=== PATIENT | female | born 1950 | race Caucasian/White ===

== ENCOUNTER 2021-06-02 05:41 | Inpatient (IN) | payer MEDICARE, OTHER ==
[2021-06-02] MEDS ORDERED: fentaNYL 100 MCG/2 ML SDV IVPUSH ONE ×3 (06:14→10:36)
[2021-06-02] MEDS ORDERED: Ondansetron 4 MG/2 ML SDV IVPUSH ONE ×2 (06:14→08:22)
[2021-06-02] MEDS ORDERED: Lactated Ringers 1,000 ML IV SCH (06:15)
--- NOTE | 2021-06-02 06:17 | EDM.PDOC ---
<OfficerMata - Last Filed: 06/02/21 06:14> ED HPI GENERAL MEDICAL PROBLEM - General Chief Complaint: Abdominal Pain Stated Complaint: ABD PAIN Time Seen by Provider: 06/02/21 06:09 Source of Information: Reports: Patient, RN Notes Reviewed History Limitations: Reports: No Limitations - History of Present Illness INITIAL COMMENTS - FREE TEXT/NARRATIVE: 71-year-old female presents emergency department day complaint of abdominal pain, she states the pain awoke her this morning she feels her abdomen is significantly flatus. Left Lower Abdomen Pain Score (Numeric/FACES): 6 - Related Data Allergies Allergy/AdvReac Type Severity Reaction Status Date / Time nitrofurantoin Allergy Hives Verified 06/02/21 05:49 [From Macrobid] nitrofurantoin Allergy Hives Verified 06/02/21 05:49 macrocrystalline [From Macrobid] oxycodone Allergy Hives Verified 06/02/21 05:49 Home Meds: Home Meds DULoxetine [Cymbalta] 20 mg PO DAILY 06/02/21 [History] Lisinopril/Hydrochlorothiazide [Lisinopril-Hctz 20-25 mg Tab] 1 tab PO DAILY 06/02/21 [History] PARoxetine HCl [Paxil] 40 mg PO DAILY 06/02/21 [History] S-Adenosylmethionine Sul Tosyl [Fuentes-E] 1,600 mg PO DAILY 06/02/21 [History] Past Medical History Cardiovascular History: Reports: Hypertension [employer] History: Reports: Fibroids, Musculoskeletal History: Reports: Arthritis, Back Pain, Chronic, Neck Pain, Chronic Psychiatric History: Reports: Anxiety, Depression Endocrine/Metabolic History: Reports: Multinodular Thyroid Hematologic History: Reports: Blood Transfusion(s) Oncologic (Cancer) History: Reports: Basal Cell Carcinoma - Infectious Disease History Infectious Disease History: Reports: Chicken Pox, Measles, Mumps - Past Surgical History Female Surgical History: Reports: Hysterectomy Neurological Surgical History: Reports: C-Spine, Lumbar Spine, Spinal Fusion Musculoskeletal Surgical History: Reports: Joint Replacement, Shoulder Repla cement Social & Family History - Tobacco Use Tobacco Use Status *Q: Never Tobacco User - Caffeine Use Caffeine Use: Reports: Coffee Caffeine Use Comment: 1 cup per day - Alcohol Use Days Per Week of Alcohol Use: 7 Number of Drinks Per Day: 2 Total Drinks Per Week: 14 - Recreational Drug Use Recreational Drug Use: No ED ROS GENERAL - Review of Systems Review Of Systems: See Below Constitutional: Reports: No Symptoms HEENT: Reports: No Symptoms Respiratory: Reports: No Symptoms Cardiovascular: Reports: No Symptoms GI/Abdominal: Reports: Abdominal Pain, Flatus, Nausea. Denies: Vomiting : Reports: No Symptoms ED EXAM, GI/ABD - Physical Exam Exam: See Below Exam Limited By: No Limitations General Appearance: Alert, WD/WN, No Apparent Distress Respiratory/Chest: No Respiratory Distress, Lungs Clear, Normal Breath Sounds, No Accessory Muscle Use, Chest Non-Tender Cardiovascular: Regular Rate, Rhythm, No Murmur GI/Abdominal Exam: Soft, Distended, Tender (Left lower quadrant) Departure - Departure Disposition: Admitted As Inpatient 64 Clinical Impression: SBO (small bowel obstruction), Hypokalemia, Elevated blood sugar - Discharge Information Referrals: PCP,None [Primary Care Provider] - Forms: ED Department Discharge Sepsis Event Note (ED) - Evaluation Sepsis Screening Result: No Definite Risk <Jong Briones - Last Filed: 06/02/21 09:51> Course - Vital Signs Text/Narrative:: Dr. Greg Santillan paged @ 0890 Dr. Mahmood called @ 0958 Last Recorded V/S: Last Vital Signs Temp 36.1 C 06/02/21 05:58 Pulse 70 06/02/21 07:33 Resp 16 06/02/21 07:33 BP 174/86 H 06/02/21 09:11 Pulse Ox 97 06/02/21 07:33 - Orders/Labs/Meds Orders: Active Orders 24 hr Category Date Time Status Peripheral IV Care [RC] . DIRECTED Care 06/02/21 06:13 Active Iopamidol [Isovue-300 (61%)] Med 06/02/21 06:45 Active 100 ml IV . DIRECTED Lactated Ringers [Ringers, Lactated] 1,000 ml Med 06/02/21 06:15 Active IV ASDIRECTED NS + KCl 20mEq/L [Normal Saline with 20 mEq KCl] 1,000 Med 06/02/21 09:45 Active ml IV ASDIRECTED Sodium Chloride 0.9% [Normal Saline] 100 ml Med 06/02/21 06:45 Active IV ASDIRECTED Sodium Chloride 0.9% [Saline Flush] Med 06/02/21 06:12 Active 10 ml FLUSH ASDIRECTED PRN Nasogastric Orogastric Tube Insertion [OM.PC] Routine Oth 06/02/21 08:47 Ordered Peripheral IV Insertion Adult [OM.PC] Urgent Ot 06/02/21 06:12 Ordered Medication Orders Lactated Ringer's (Ringers, Lactated) 1,000 mls @ 999 mls/hr IV ASDIRECTED BRYANT Last Admin: 06/02/21 06:28 Dose: 999 mls/hr Documented by: MARIE Sodium Chloride (Normal Saline) 100 mls @ 3 mls/sec IV ASDIRECTED BRYANT Last Admin: 06/02/21 07:14 Dose: 3 mls/sec Documented by: KALIA Potassium Chloride/Sodium Chloride (Normal Saline With 20 Meq Kcl) 1,000 mls @ 125 mls/hr IV ASDIRECTED BRYANT Last Admin: 06/02/21 09:41 Dose: 125 mls/hr Documented by: IZABEL Iopamidol (Iopamidol 612 Mg/Ml 100 Ml Bottle) 100 ml IV . DIRECTED BRYANT Last Admin: 06/02/21 07:14 Dose: 100 ml Documented by: KALIA Sodium Chloride (Sodium Chloride 0.9% 10 Ml Syringe) 10 ml FLUSH ASDIRECTED PRN PRN Reason: Keep Vein Open Last Admin: 06/02/21 07:14 Dose: 10 ml Documented by: Admin: 06/02/21 06:27 Dose: 10 ml Documented by: MARIE Labs: Laboratory Tests 06/02/21 06/02/21 06/02/21 Range/Units 06:29 06:29 06:29 WBC 11.6 H (4.5-11.0) K/uL RBC 4.66 (3.30-5.50) M/uL Hgb 14.5 (12.0-15.0) g/dL Hct 41.8 (36.0-48.0) % MCV 90 (80-98) fL MCH 31 (27-31) pg MCHC 35 (32-36) % Plt Count 322 (150-400) K/uL Neut % (Auto) 84.6 H (36-66) % Lymph % (Auto) 8.8 L (24-44) % Victoria % (Auto) 5.8 (2-6) % Eos % (Auto) 0.6 L (2-4) % Baso % (Auto) 0.2 (0-1) % Sodium 136 L (140-148) mmol/L Potassium 3.1 L (3.6-5.2) mmol/L Chloride 96 L (100-108) mmol/L Carbon Dioxide 27 (21-32) mmol/L Anion Gap 16.1 H (5.0-14.0) mmol/L BUN 17 (7-18) mg/dL Creatinine 0.8 (0.6-1.0) mg/dL Est Cr Clr Drug Dosing 49.53 mL/min Estimated GFR (MDRD) > 60 (>60) Glucose 174 H (74-106) mg/dL Lactic Acid 1.4 (0.4-2.0) mmol/L Calcium 9.0 (8.5-10.1) mg/dL Magnesium (1.8-2.4) mg/dL Total Bilirubin 0.6 (0.2-1.0) mg/dL AST 23 (15-37) U/L ALT 30 (12-78) U/L Alkaline Phosphatase 65 (46-116) U/L Troponin I < 0.017 (0.000-0.056) ng/mL Total Protein 6.9 (6.4-8.2) g/dL Albumin 3.7 (3.4-5.0) g/dL Globulin 3.2 (2.3-3.5) g/dL Albumin/Globulin Ratio 1.2 (1.2-2.2) Lipase 77 (73-393) U/L Urine Color (YELLOW) Urine Appearance (CLEAR) Urine pH (5.0-8.0) Ur Specific [place]wood (1.008-1.030) Urine Protein (NEGATIVE) mg/dL Urine Glucose (UA) (NEGATIVE) mg/dL Urine Ketones (NEGATIVE) mg/dL Urine Occult Blood (NEGATIVE) Urine Nitrite (NEGATIVE) Urine Bilirubin (NEGATIVE) Urine Urobilinogen (0.2-1.0) EU/dL Ur Leukocyte Esterase (NEGATIVE) Urine RBC (0-5) Urine WBC (0-5) Ur Epithelial Cells Amorphous Sediment Urine Bacteria Urine Mucus 06/02/21 06/02/21 Range/Units 07:11 07:31 WBC (4.5-11.0) K/uL RBC (3.30-5.50) M/uL Hgb (12.0-15.0) g/dL Hct (36.0-48.0) % MCV (80-98) fL MCH (27-31) pg MCHC (32-36) % Plt Count (150-400) K/uL Neut % (Auto) (36-66) % Lymph % (Auto) (24-44) % Victoria % (Auto) (2-6) % Eos % (Auto) (2-4) % Baso % (Auto) (0-1) % Sodium (140-148) mmol/L Potassium (3.6-5.2) mmol/L Chloride (100-108) mmol/L Carbon Dioxide (21-32) mmol/L Anion Gap (5.0-14.0) mmol/L BUN (7-18) mg/dL Creatinine (0.6-1.0) mg/dL Est Cr Clr Drug Dosing mL/min Estimated GFR (MDRD) (>60) Glucose (74-106) mg/dL Lactic Acid (0.4-2.0) mmol/L Calcium (8.5-10.1) mg/dL Magnesium 2.2 (1.8-2.4) mg/dL Total Bilirubin (0.2-1.0) mg/dL AST (15-37) U/L ALT (12-78) U/L Alkaline Phosphatase (46-116) U/L Troponin I (0.000-0.056) ng/mL Total Protein (6.4-8.2) g/dL Albumin (3.4-5.0) g/dL Globulin (2.3-3.5) g/dL Albumin/Globulin Ratio (1.2-2.2) Lipase (73-393) U/L Urine Color Yellow (YELLOW) Urine Appearance Cloudy A (CLEAR) Urine pH 8.5 H (5.0-8.0) Ur Specific [place]wood 1.015 (1.008-1.030) Urine Protein 30 H (NEGATIVE) mg/dL Urine Glucose (UA) Negative (NEGATIVE) mg/dL Urine Ketones Negative (NEGATIVE) mg/dL Urine Occult Blood Negative (NEGATIVE) Urine Nitrite Negative (NEGATIVE) Urine Bilirubin Negative (NEGATIVE) Urine Urobilinogen 0.2 (0.2-1.0) EU/dL Ur Leukocyte Esterase Negative (NEGATIVE) Urine RBC 0-5 (0-5) Urine WBC 0-5 (0-5) Ur Epithelial Cells Few Amorphous Sediment Many Urine Bacteria Not seen Urine Mucus Not seen Meds: Medications Generic Name Dose Route Start Last Admin Trade Name Freq PRN Reason Stop Dose Admin Lactated Ringer's 1,000 mls @ 999 mls/hr 06/02/21 06:15 06/02/21 06:28 Ringers, Lactated IV 999 mls/hr ASDIRECTED BRYANT Administration Sodium Chloride 100 mls @ 3 mls/sec 06/02/21 06:45 06/02/21 07:14 Normal Saline IV 3 mls/sec ASDIRECTED BRYANT Administration Potassium Chloride/Sodium Chloride 1,000 mls @ 125 mls/hr 06/02/21 09:45 06/02/21 09:41 Normal Saline With 20 Meq Kcl IV 125 mls/hr ASDIRECTED BRYANT Administration Iopamidol 100 ml 06/02/21 06:45 06/02/21 07:14 Iopamidol 612 Mg/Ml 100 Ml Bottle IV 100 ml . DIRECTED BRYANT Administration Sodium Chloride 10 ml 06/02/21 06:12 06/02/21 07:14 Sodium Chloride 0.9% 10 Ml Syringe FLUSH 10 ml ASDIRECTED PRN Administration Keep Vein Open Discontinued Medications Generic Name Dose Route Start Last Admin Trade Name Freq PRN Reason Stop Dose Admin Fentanyl 50 mcg 06/02/21 06:14 06/02/21 06:28 Fentanyl 100 Mcg/2 Ml Sdv IVPUSH 06/02/21 06:15 50 mcg ONETIME ONE Administration Fentanyl 50 mcg 06/02/21 08:22 06/02/21 08:29 Fentanyl 100 Mcg/2 Ml Sdv IVPUSH 06/02/21 08:23 50 mcg ONETIME ONE Administration Potassium Chloride 20 meq/ 100 mls @ 50 mls/hr 06/02/21 07:11 06/02/21 07:37 Premix IV 06/02/21 09:10 50 mls/hr ONETIME ONE Administration Ondansetron HCl 4 mg 06/02/21 06:14 06/02/21 06:27 Ondansetron 4 Mg/2 Ml Sdv IVPUSH 06/02/21 06:15 4 mg ONETIME ONE Administration Ondansetron HCl 4 mg 06/02/21 08:22 06/02/21 08:29 Ondansetron 4 Mg/2 Ml Sdv IVPUSH 06/02/21 08:23 4 mg ONETIME ONE Administration Sodium Chloride 10 ml 06/02/21 06:37 06/02/21 08:30 Sodium Chloride 0.9% 10 Ml Syringe FLUSH 06/02/21 06:38 10 ml ONETIME ONE Administration - Radiology Interpretation Free Text/Narrative:: CT abd/pelvis with IV contrast-SBO Chest for NG placement-NG satisfactorily placed. CT Results Date: 06/02/21 CT Results Time: 08:15 Departure - Departure Time of Disposition: 10:00 Condition: Fair - Discharge Information *PRESCRIPTION DRUG MONITORING PROGRAM REVIEWED*: Not Applicable *COPY OF PRESCRIPTION DRUG MONITORING REPORT IN PATIENT DEDRA: Not Applicable Sepsis Event Note (ED) - Focused Exam Vital Signs: Vital Signs Temp Pulse Resp BP Pulse Ox 06/02/21 09:11 174/86 H 06/02/21 07:33 70 16 127/62 97 06/02/21 05:58 36.1 C 82 16 166/90 H 94 L - My Orders Last 24 Hours: My Active Orders 06/02/21 08:47 Nasogastric Orogastric Tube Insertion [OM.PC] Routine 06/02/21 09:45 NS + KCl 20mEq/L [Normal Saline with 20 mEq KCl] 1,000 ml IV ASDIRECTED - Assessment/Plan Last 24 Hours: My Active Orders 06/02/21 08:47 Nasogastric Orogastric Tube Insertion [OM.PC] Routine 06/02/21 09:45 NS + KCl 20mEq/L [Normal Saline with 20 mEq KCl] 1,000 ml IV ASDIRECTED
[2021-06-02] MEDS: Sodium Chloride 0.9% 10 ML Syringe FLUSH PRN ×2 (06:27→07:14)
[2021-06-02] MEDS ORDERED: Sodium Chloride 0.9% 10 ML Syringe FLUSH ONE (06:37)
[2021-06-02] MEDS ORDERED: Iopamidol 612 MG/ML 100 ML Bottle IV SCH (06:45)
[2021-06-02] MEDS ORDERED: Sodium Chloride 0.9% 100 ML IV SCH (06:45)
[2021-06-02] MEDS ORDERED: Potassium Chloride 20 MEQ in Premix Bag 1 BAG IV ONE (07:11)
--- NOTE | 2021-06-02 08:08 | CRLCT ---
For Patients: As a result of the Century Cures Act, medical imaging exams and procedure reports are released immediately into your electronic medical record. You may view this report before your referring provider. If you have questions, please contact your health care provider. INDICATION: Left lower quadrant abdomen pain and distention. TECHNIQUE: CT abdomen and pelvis acquired with 100 cc Isovue-300 IV contrast. COMPARISON: None. FINDINGS: Lower chest: Unremarkable. Liver: Unremarkable. Normal in size and attenuation. No suspicious masses. Gallbladder and bile ducts: Few gallbladder stones. No biliary dilatation. Pancreas: Unremarkable. No mass or inflammation. Spleen: Unremarkable. Normal in size. No masses. Adrenal glands: Unremarkable. No nodules. Kidneys: Unremarkable. No suspicious masses, stones, or hydronephrosis. GI tract: There is a small bowel obstruction pattern with small bowel loops dilated up to 4 cm. A general area of transition is suspected in the distal jejunum or ileum. The colon is decompressed. Normal appendix. Vasculature: Unremarkable. Mesenteric arteries are patent. Lymph nodes: No lymphadenopathy. Omentum/Peritoneum/Abdominal Wall: Unremarkable. No sign of mass or infiltration. No free air or significant free fluid. Pelvis: Unremarkable. Bones: Unremarkable for age. IMPRESSION: Small-bowel obstruction with a general area of transition distally. No specific cause for this obstruction. No other acute or significant finding. Please note that all CT scans at this facility use dose modulation, iterative reconstruction, and/or weight-based dosing when appropriate to reduce radiation dose to as low as reasonably achievable. Dictated by Narciso Cordero MD @ 06/02/2021 8:06:[address] Narciso Cordero @ Jun 02 2021 8:06AM
[2021-06-02] MEDS ORDERED: NS + KCl 20mEq/L 1,000 ML IV SCH (09:45)
--- NOTE | 2021-06-02 09:46 | CR ---
Abdomen 1V Upright CLINICAL HISTORY: NG tube placement FINDINGS: There are scattered fluid-filled loops of small bowel that are seen on the recent CT. NG tube is been placed. Tip is in the distal body of the stomach. There is contrast in the collecting system and bladder from recent CT. IMPRESSION: NG tube in the distal body of stomach
--- NOTE | 2021-06-02 09:47 | CR ---
CHEST: Portable 06/02/2021 at 9:35 AM CLINICAL HISTORY:NG tube placement COMPARISON:None FINDINGS: Heart size and pulmonary vascularity are normal. Lung esparza are clear. There is no evidence of pneumothorax. There is an NG tube in the upper body of the stomach.. Impression: Lungs are clear NG tube in place
--- NOTE | 2021-06-02 10:26 | PCM.HP.2 ---
H&P History of Present Illness - General Date of Service: 06/02/21 Admit Problem/Dx: Admission Diagnosis/Problem Admission Diagnosis/Problem Abdominal pain Source of Information: Patient, Family, Provider, RN Notes Reviewed History Limitations: Reports: No Limitations - History of Present Illness Initial Comments - Free Text/Narative: Ms. Moses is a 71-year-old woman who was admitted through the emergency department with abdominal pain, nausea, and vomiting, secondary to a small bowel obstruction. She has no prior history of bowel obstruction. She has had a previous abdominal hysterectomy as well as abdominal approach with a previous back surgery. She was feeling well until last night when she developed abrupt onset of pain associated with nausea and vomiting. Symptoms persisted and she presented to the emergency department early this morning. CT scan of the abdomen and pelvis obtained in the emergency department documented a distal small bowel obstruction. Left Lower Abdomen Pain Score (Numeric/FACES): 3 - Related Data Allergies/Adverse Reactions: Allergies Allergy/AdvReac Type Severity Reaction Status Date / Time nitrofurantoin Allergy Hives Verified 06/02/21 05:49 [From Macrobid] nitrofurantoin Allergy Hives Verified 06/02/21 05:49 macrocrystalline [From Macrobid] oxycodone Allergy Hives Verified 06/02/21 05:49 Home Medications: Home Meds DULoxetine [Cymbalta] 20 mg PO DAILY 06/02/21 [History] Lisinopril/Hydrochlorothiazide [Lisinopril-Hctz 20-25 mg Tab] 1 tab PO DAILY 06/02/21 [History] PARoxetine HCl [Paxil] 40 mg PO DAILY 06/02/21 [History] S-Adenosylmethionine Sul Tosyl [Fuentes-E] 1,600 mg PO DAILY 06/02/21 [History] Past Medical History Cardiovascular History: Reports: Hypertension GRIP BOSS History: Reports: Fibroids, Musculoskeletal History: Reports: Arthritis, Back Pain, Chronic, Neck Pain, Chronic Psychiatric History: Reports: Anxiety, Depression Endocrine/Metabolic History: Reports: Multinodular Thyroid Hematologic History: Reports: Blood Transfusion(s) Oncologic (Cancer) History: Reports: Basal Cell Carcinoma - Infectious Disease History Infectious Disease History: Reports: Chicken Pox, Measles, Mumps - Past Surgical History Female Surgical History: Reports: Hysterectomy Neurological Surgical History: Reports: C-Spine, Lumbar Spine, Spinal Fusion Musculoskeletal Surgical History: Reports: Joint Replacement, Shoulder Replacement Social & Family History - Tobacco Use Tobacco Use Status *Q: Never Tobacco User - Caffeine Use Caffeine Use: Reports: Coffee Caffeine Use Comment: 1 cup per day - Alcohol Use Days Per Week of Alcohol Use: 7 Number of Drinks Per Day: 2 Total Drinks Per Week: 14 - Recreational Drug Use Recreational Drug Use: No H&P Review of Systems - Review of Systems: Review Of Systems: See Below General: Reports: Malaise, Weakness, Fatigue. Denies: Fever, Chills HEENT: Reports: No Symptoms Pulmonary: Reports: No Symptoms Gastrointestinal: Reports: Abdominal Pain, Distension, Nausea, Vomiting. Denies: Diarrhea, Difficulty Swallowing, Hematemesis, Hematochezia, Melena Genitourinary: Reports: No Symptoms Musculoskeletal: Reports: No Symptoms Skin: Reports: No Symptoms Psychiatric: Reports: No Symptoms Neurological: Reports: No Symptoms Hematologic/Lymphatic: Reports: No Symptoms Immunologic: Reports: No Symptoms Exam - Exam Exam: See Below - Vital Signs Vital Signs: Last Vital Signs Temp 97.0 F 06/02/21 05:58 Pulse 70 06/02/21 07:33 Resp 16 06/02/21 07:33 BP 174/86 H 06/02/21 09:11 Pulse Ox 97 06/02/21 07:33 Weight: 147 lb 11.355 oz - Exam General: Alert, Oriented, Cooperative, Moderate Distress HEENT: Conjunctiva Clear, Hearing Intact, Normal Nasal Septum, Posterior Pharynx Clear, Pupils Equal. No: Mucosa Moist & [place]ck: Supple, Trachea Midline, +2 Carotid Pulse wo Bruit Lungs: Clear to Auscultation, Normal Respiratory Effort Cardiovascular: Regular Rate, Regular Rhythm, Normal S1, Normal S2. No: Systolic Murmur, Diastolic Murmur GI/Abdominal Exam: Soft, No Organomegaly, Distended, Guarding, Tender. No: Rigid, Rebound Back Exam: Normal Inspection, Full Range of Motion Extremities: Non-Tender, No Pedal Edema Skin: Warm, Dry, Intact Neurological: Cranial Nerves Intact, Strength Equal Bilateral, Normal Speech, Normal Tone, Sensation Intact. No: Focal Deficit Neuro Extensive - Mental Status: Alert, Oriented x3, Normal Mood/Affect, Normal Cognition, Memory Intact - Patient Data Lab Results Last 24 hrs: Laboratory Results - last 24 hr 06/02/21 06/02/21 06/02/21 Range/Units 06:29 06:29 06:29 WBC 11.6 H (4.5-11.0) K/uL RBC 4.66 (3.30-5.50) M/uL Hgb 14.5 (12.0-15.0) g/dL Hct 41.8 (36.0-48.0) % MCV 90 (80-98) fL MCH 31 (27-31) pg MCHC 35 (32-36) % Plt Count 322 (150-400) K/uL Neut % (Auto) 84.6 H (36-66) % Lymph % (Auto) 8.8 L (24-44) % [place] % (Auto) 5.8 (2-6) % Eos % (Auto) 0.6 L (2-4) % Baso % (Auto) 0.2 (0-1) % Sodium 136 L (140-148) mmol/L Potassium 3.1 L (3.6-5.2) mmol/L Chloride 96 L (100-108) mmol/L Carbon Dioxide 27 (21-32) mmol/L Anion Gap 16.1 H (5.0-14.0) mmol/L BUN 17 (7-18) mg/dL Creatinine 0.8 (0.6-1.0) mg/dL Est Cr Clr Drug Dosing 49.53 mL/min Estimated GFR (MDRD) > 60 (>60) Glucose 174 H (74-106) mg/dL Lactic Acid 1.4 (0.4-2.0) mmol/L Calcium 9.0 (8.5-10.1) mg/dL Magnesium (1.8-2.4) mg/dL Total Bilirubin 0.6 (0.2-1.0) mg/dL AST 23 (15-37) U/L ALT 30 (12-78) U/L Alkaline Phosphatase 65 (46-116) U/L Troponin I < 0.017 (0.000-0.056) ng/mL Total Protein 6.9 (6.4-8.2) g/dL Albumin 3.7 (3.4-5.0) g/dL Globulin 3.2 (2.3-3.5) g/dL Albumin/Globulin Ratio 1.2 (1.2-2.2) Lipase 77 (73-393) U/L Urine Color (YELLOW) Urine Appearance (CLEAR) Urine pH (5.0-8.0) Ur Specific [place] (1.008-1.030) Urine Protein (NEGATIVE) mg/dL Urine Glucose (UA) (NEGATIVE) mg/dL Urine Ketones (NEGATIVE) mg/dL Urine Occult Blood (NEGATIVE) Urine Nitrite (NEGATIVE) Urine Bilirubin (NEGATIVE) Urine Urobilinogen (0.2-1.0) EU/dL Ur Leukocyte Esterase (NEGATIVE) Urine RBC (0-5) Urine WBC (0-5) Ur Epithelial Cells Amorphous Sediment Urine Bacteria Urine Mucus 06/02/21 06/02/21 Range/Units 07:11 07:31 WBC (4.5-11.0) K/uL RBC (3.30-5.50) M/uL Hgb (12.0-15.0) g/dL Hct (36.0-48.0) % MCV (80-98) fL MCH (27-31) pg MCHC (32-36) % Plt Count (150-400) K/uL Neut % (Auto) (36-66) % Lymph % (Auto) (24-44) % [place] % (Auto) (2-6) % Eos % (Auto) (2-4) % Baso % (Auto) (0-1) % Sodium (140-148) mmol/L Potassium (3.6-5.2) mmol/L Chloride (100-108) mmol/L Carbon Dioxide (21-32) mmol/L Anion Gap (5.0-14.0) mmol/L BUN (7-18) mg/dL Creatinine (0.6-1.0) mg/dL Est Cr Clr Drug Dosing mL/min Estimated GFR (MDRD) (>60) Glucose (74-106) mg/dL Lactic Acid (0.4-2.0) mmol/L Calcium (8.5-10.1) mg/dL Magnesium 2.2 (1.8-2.4) mg/dL Total Bilirubin (0.2-1.0) mg/dL AST (15-37) U/L ALT (12-78) U/L Alkaline Phosphatase (46-116) U/L Troponin I (0.000-0.056) ng/mL Total Protein (6.4-8.2) g/dL Albumin (3.4-5.0) g/dL Globulin (2.3-3.5) g/dL Albumin/Globulin Ratio (1.2-2.2) Lipase (73-393) U/L Urine Color Yellow (YELLOW) Urine Appearance Cloudy A (CLEAR) Urine pH 8.5 H (5.0-8.0) Ur Specific [place] 1.015 (1.008-1.030) Urine Protein 30 H (NEGATIVE) mg/dL Urine Glucose (UA) Negative (NEGATIVE) mg/dL Urine Ketones Negative (NEGATIVE) mg/dL Urine Occult Blood Negative (NEGATIVE) Urine Nitrite Negative (NEGATIVE) Urine Bilirubin Negative (NEGATIVE) Urine Urobilinogen 0.2 (0.2-1.0) EU/dL Ur Leukocyte Esterase Negative (NEGATIVE) Urine RBC 0-5 (0-5) Urine WBC 0-5 (0-5) Ur Epithelial Cells Few Amorphous Sediment Many Urine Bacteria Not seen Urine Mucus Not seen Result Diagrams: 06/02/21 06:29 06/02/21 06:29 Sepsis Event Note - Evaluation Sepsis Screening Result: No Definite Risk - Focused Exam Vital Signs: Vital Signs Temp Pulse Resp BP Pulse Ox 06/02/21 09:11 174/86 H 06/02/21 07:33 70 16 127/62 97 06/02/21 05:58 97.0 F 82 16 166/90 H 94 L *Q Meaningful Use (ADM) - VTE Risk Assess *Q Each Risk Factor Represents 1 Point: Obesity ( BMI > 25 kg/m2) Total Score 1 Point Risk Factors: 1 Each Risk Factor Represents 2 Points: Age 60 - 74 Years Total Score 2 Point Risk Factors: 2 Each Risk Factor Represents 3 Points: None Total Score 3 Point Risk Factors: 0 Each Risk Factor Represents 5 Points: None Total Score 5 Point Risk Factors: 0 Venous Thromboembolism Risk Factor Score *Q: 3 Problem List Initiated/Reviewed/Updated: Yes Orders Last 24hrs: Active Orders 24 hr Category Date Time Status Patient Status Manage Transfer [TRANSFER] Routine ADT 06/02/21 10:17 Ordered Peripheral IV Care [RC] . DIRECTED Care 06/02/21 06:13 Active Lactated Ringers [Ringers, Lactated] 1,000 ml Med 06/02/21 06:15 Active IV ASDIRECTED NS + KCl 20mEq/L [Normal Saline with 20 mEq KCl] 1,000 Med 06/02/21 09:45 Active ml IV ASDIRECTED Potassium Chloride 20 meq Med 06/02/21 11:00 Active Lidocaine 1% [Xylocaine 1%] 2 ml Sodium Chloride 0.9% [Normal Saline] 100 ml IV Q2H Sodium Chloride 0.9% [Saline Flush] Med 06/02/21 06:12 Active 10 ml FLUSH ASDIRECTED PRN Nasogastric Orogastric Tube Insertion [OM.PC] Routine Oth 06/02/21 08:47 Ordered Peripheral IV Insertion Adult [OM.PC] Urgent Oth 06/02/21 06:12 Ordered Resuscitation Status Routine Resus Stat 06/02/21 10:19 Ordered Medication Orders Lactated Ringer's (Ringers, Lactated) 1,000 mls @ 999 mls/hr IV ASDIRECTED BRYANT Last Admin: 06/02/21 06:28 Dose: 999 mls/hr Documented by: MARIE Potassium Chloride/Sodium Chloride (Normal Saline With 20 Meq Kcl) 1,000 mls @ 125 mls/hr IV ASDIRECTED BRYANT Last Admin: 06/02/21 09:41 Dose: 125 mls/hr Documented by: IZABEL Potassium Chloride 20 meq/Lidocaine HCl 2 ml/ Sodium Chloride 112 mls @ 56 mls/hr IV Q2H [facility] Stop: 06/02/21 14:59 Sodium Chloride (Sodium Chloride 0.9% 10 Ml Syringe) 10 ml FLUSH ASDIRECTED PRN PRN Reason: Keep Vein Open Last Admin: 06/02/21 07:14 Dose: 10 ml Documented by: Admin: 06/02/21 06:27 Dose: 10 ml Documented by: MARIE Assessment/Plan Comment:: ASSESSMENT AND PLAN SMALL BOWEL OBSTRUCTION-no prior history of obstruction but she does have history of previous abdominal surgeries. CT scan obtained in the emergency department documents a distal small bowel obstruction. -N.p.o. -IV fluids for hydration -Pain and nausea medication as needed -NG tube to low intermittent suction -Follow-up abdominal flatplate and upright x-ray in a.m. -Consult Dr. Santillan in a.m. for surgical follow-up HYPOKALEMIA -IV potassium replacement -Follow-up potassium level in a.m. MAINTENANCE ISSUES -DVT prophylaxis; SCUDs, hold on anticoagulation because of possible need for surgery -GI prophylaxis; Protonix 40 mg IV daily -Cortes catheter; not indicated -Nutrition; n.p.o. -Nicotine dependence; not required CODE STATUS-FULL CODE ADMISSION STATUS-patient will be admitted to inpatient status, expect at least a 2 night hospital stay for evaluation and management of problems as outlined above. At the time of this admission I do not reasonably expected evaluation and management of this problem will require more than a 96 hour hospital stay. DISPOSITION-anticipate discharge to home after the hospital stay. PRIMARY CARE PROVIDER-Dr. Madrigal - Mortality Measure Prognosis:: Good
[2021-06-02] MEDS: Potassium Chloride 20 MEQ, Lidocaine 1% 2 ML in Sodium Chloride 0.9% 100 ML IV SCH ×2 (11:02→13:01)
[2021-06-02] MEDS ORDERED: Ondansetron 4 MG/2 ML SDV IV PRN (11:10)
[2021-06-02] MEDS: Lisinopril 20 MG Tab PO SCH (12:00)
[2021-06-02] MEDS: PARoxetine 20 MG Tab PO SCH (12:00)
[2021-06-02] MEDS: Hydrochlorothiazide 25 MG Tab PO SCH (12:00)
[2021-06-02] MEDS: Pantoprazole 40 MG Vial IVPUSH SCH (12:01)
[2021-06-02] MEDS: HYDROmorphone 0.5 MG/0.5 ML Syringe IVPUSH PRN ×4 (13:01→20:29)
[2021-06-02] MEDS: Sodium Chloride 0.9% 1,000 ML IV SCH (18:06)
[2021-06-03] MEDS: Sodium Chloride 0.9% 1,000 ML IV SCH (01:42)
[2021-06-03] MEDS: HYDROmorphone 0.5 MG/0.5 ML Syringe IVPUSH PRN ×3 (04:17→13:38)
[2021-06-03] MEDS: Hydrochlorothiazide 25 MG Tab PO SCH (08:17)
[2021-06-03] MEDS: PARoxetine 20 MG Tab PO SCH (08:17)
[2021-06-03] MEDS: DULoxetine 20 MG Cap PO SCH (08:17)
[2021-06-03] MEDS: Lisinopril 20 MG Tab PO SCH (08:18)
--- NOTE | 2021-06-03 08:26 | PN ---
DATE OF SERVICE: 06/03/2021 SUBJECTIVE: Rosalba reports her pain has improved. She has passed a small amount of flatus. NG put out 1015 mL and oral intake n.p.o. with just sips, and she has been voiding independently in the toilet. No nausea or vomiting. Abdominal pain she reports in the very lower part of her abdomen. REVIEW OF SYSTEMS: HEENT: Negative. NECK: Negative. Supple. HEART: No chest pain. No fast irregular heart beat. LUNGS: No shortness of breath or cough. ABDOMEN: As above. GENITOURINARY: No UTI signs and symptoms. She states she did have a bladder infection 1 to 2 months ago. EXTREMITIES: Negative for any joint pain or swelling. NEUROLOGIC: No headaches, dizziness, or loss of coordination. She denies any numbness or tingling in the extremities. PSYCHIATRIC: She has a history of depression but states controlled with medication. SKIN: Negative for any rashes or changes in moles. The remainder of the review of systems is negative for any pertinent positives and negatives. OBJECTIVE: GENERAL: Rosalba Moses is a pleasant 71-year-old female. She has an NG in. VITAL SIGNS: TPR 97, 77, and 16 and blood pressure 131/63. HEENT: Negative. NECK: Supple. HEART: Regular rate and rhythm. LUNGS: Clear. ABDOMEN: Slightly distended. Minimal tenderness is noted in the right and left lower abdominal quadrants. EXTREMITIES: Without peripheral edema. NEUROLOGIC: Intact. PSYCHIATRIC: Mood and affect are appropriate. ASSESSMENT: 1. Partial small-bowel obstruction. 2. Hypokalemia, resolved. PLAN: 1. May have sips of clear liquid. 2. Dulcolax suppositories per rectum b.i.d. 3. Discontinue normal saline and change to D5 LR 100 mL/h. 4. Check abdominal flat and upright x-ray in the a.m. Check CBC, CMP, mag, and phos in the a.m. Isabela Adkins PA-C /[id number]
--- NOTE | 2021-06-03 09:27 | CR ---
Abdomen 2V AP Flat Upright CLINICAL HISTORY: Follow-up small bowel obstruction FINDINGS: There are scattered air-filled loops of small bowel and scattered air-fluid levels in the mid abdomen. There are some dilated small bowel in the left upper abdomen. These were mostly fluid-filled small bowel loops on prior study and CT There is some gas and feces in the right colon. NG tube is in place. IMPRESSION: Scattered air-fluid levels. There is now some gas in the colon. This may represent some partial resolution of SBO
[2021-06-03] MEDS: Bisacodyl 10 MG Supp RECTAL SCH ×2 (09:32→20:13)
[2021-06-03] MEDS: Dextrose 5%-Lactated Ringers 1,000 ML IV SCH ×2 (09:37→18:13)
[2021-06-03] MEDS: Pantoprazole 40 MG Vial IVPUSH SCH (11:50)
[2021-06-03] MEDS ORDERED: diphenhydrAMINE 50 MG/ML SDV IVPUSH PRN (12:17)
[2021-06-03] MEDS: Benzocaine/Cetylpyridinium/Menthol Lozenge MUCMEM PRN (13:17)
--- NOTE | 2021-06-03 13:24 | PCM.PN ---
- General Info Date of Service: 06/03/21 Subjective Update: Ms. Moses has shown modest improvement since admission with less abdominal pain and no further nausea. She has started to pass a small amount of gas and abdominal flatplate/upright x-ray shows modest improvement with some air in the large intestine. She is experiencing irritation related to the NG tube with some mild neck swelling. Functional Status: Reports: Ambulating, Urinating - Review of Systems General: Reports: No Symptoms Pulmonary: Reports: No Symptoms Cardiovascular: Reports: No Symptoms Gastrointestinal: Reports: Abdominal Pain, Flatus. Denies: Difficulty Swallowing, Hematochezia, Melena, Nausea, Vomiting Genitourinary: Reports: No Symptoms - Patient Data Vitals - Most Recent: Last Vital Signs Temp 97.4 F 06/03/21 10:47 Pulse 81 06/03/21 10:47 Resp 16 06/03/21 10:47 BP 146/65 H 06/03/21 10:47 Pulse Ox 95 06/03/21 10:47 Weight - Most Recent: 150 lb 9.211 oz I&O - Last 24 Hours: Intake & Output 06/02/21 06/03/21 06/03/21 22:59 06:59 14:59 Intake Total 1924 1439 Output Total 800 250 300 Balance 1124 1189 -300 Lab Results Last 24 Hours: Laboratory Results - last 24 hr 06/03/21 06/03/21 Range/Units 04:25 04:25 WBC 9.5 (4.5-11.0) K/uL RBC 4.10 (3.30-5.50) M/uL Hgb 12.7 (12.0-15.0) g/dL Hct 39.3 (36.0-48.0) % MCV 96 (80-98) fL MCH 31 (27-31) pg MCHC 32 (32-36) % Plt Count 266 (150-400) K/uL Neut % (Auto) 70.6 H (36-66) % Lymph % (Auto) 18.4 L (24-44) % [place] % (Auto) 9.4 H (2-6) % Eos % (Auto) 1.5 L (2-4) % Baso % (Auto) 0.1 (0-1) % Sodium 142 (140-148) mmol/L Potassium 3.8 (3.6-5.2) mmol/L Chloride 106 (100-108) mmol/L Carbon Dioxide 30 (21-32) mmol/L Anion Gap 5.9 (5.0-14.0) mmol/L BUN 13 (7-18) mg/dL Creatinine 0.7 (0.6-1.0) mg/dL Est Cr Clr Drug Dosing 56.12 mL/min Estimated GFR (MDRD) > 60 (>60) Glucose 103 (74-106) mg/dL Calcium 8.2 L (8.5-10.1) mg/dL Magnesium 2.0 (1.8-2.4) mg/dL Med Orders - Current: Current Medications Benzocaine/Menthol (Benzocaine/Cetylpyridinium/Menthol Lozenge) 1 lozenge MUCMEM Q2H PRN PRN Reason: Other Last Admin: 06/03/21 13:17 Dose: 1 michelle Documented by: Bisacodyl (Bisacodyl 10 Mg Supp) 10 mg RECTAL BID ON LICENSE OF [facility] Last Admin: 06/03/21 09:32 Dose: 10 mg Documented by: Diphenhydramine HCl (Diphenhydramine 50 Mg/Ml Sdv) 25 mg IVPUSH Q6H PRN PRN Reason: swelling of neck Duloxetine HCl (Duloxetine 20 Mg Cap) 20 mg PO DAILY ON LICENSE OF [facility] Last Admin: 06/03/21 08:17 Dose: 20 mg Documented by: Hydrochlorothiazide (Hydrochlorothiazide 25 Mg Tab) 25 mg PO DAILY ON LICENSE OF [facility] Last Admin: 06/03/21 08:17 Dose: 25 mg Documented by: Hydromorphone HCl (Hydromorphone 0.5 Mg/0.5 Ml Syringe) 0.5 mg IVPUSH Q2H PRN PRN Reason: Pain Last Admin: 06/03/21 08:14 Dose: 0.5 mg Documented by: Dextrose/Lactated Ringer's (Dextrose 5%-Lactated Ringers) 1,000 mls @ 100 mls/hr IV ASDIRECTED ON LICENSE OF [facility] Last Admin: 06/03/21 09:37 Dose: 100 mls/hr Documented by: Lisinopril (Lisinopril 20 Mg Tab) 20 mg PO DAILY ON LICENSE OF [facility] Last Admin: 06/03/21 08:18 Dose: 20 mg Documented by: Ondansetron HCl (Ondansetron 4 Mg/2 Ml Sdv) 4 mg IV Q4H PRN PRN Reason: Nausea/Vomiting Last Admin: 06/02/21 13:01 Dose: 4 mg Documented by: Pantoprazole Sodium (Pantoprazole 40 Mg Vial) 40 mg IVPUSH Q24H ON LICENSE OF [facility] Last Admin: 06/03/21 11:50 Dose: 40 mg Documented by: Paroxetine HCl (Paroxetine 20 Mg Tab) 40 mg PO DAILY ON LICENSE OF [facility] Last Admin: 06/03/21 08:17 Dose: 40 mg Documented by: Discontinued Medications Fentanyl (Fentanyl 100 Mcg/2 Ml Sdv) 50 mcg IVPUSH ONETIME ONE Stop: 06/02/21 06:15 Last Admin: 06/02/21 06:28 Dose: 50 mcg Documented by: Fentanyl (Fentanyl 100 Mcg/2 Ml Sdv) 50 mcg IVPUSH ONETIME ONE Stop: 06/02/21 08:23 Last Admin: 06/02/21 08:29 Dose: 50 mcg Documented by: Fentanyl (Fentanyl 100 Mcg/2 Ml Sdv) 50 mcg IVPUSH ONETIME ONE Stop: 06/02/21 10:37 Last Admin: 06/02/21 10:56 Dose: 50 mcg Documented by: Lactated Ringer's (Ringers, Lactated) 1,000 mls @ 999 mls/hr IV ASDIRECTED ON LICENSE OF [facility] Last Admin: 06/02/21 06:28 Dose: 999 mls/hr Documented by: Sodium Chloride (Normal Saline) 100 mls @ 3 mls/sec IV ASDIRECTED ON LICENSE OF [facility] Last Admin: 06/02/21 07:14 Dose: 3 mls/sec Documented by: Potassium Chloride 20 meq/ (Premix) 100 mls @ 50 mls/hr IV ONETIME ONE Stop: 06/02/21 09:10 Last Admin: 06/02/21 07:37 Dose: 50 mls/hr Documented by: Potassium Chloride/Sodium Chloride (Normal Saline With 20 Meq Kcl) 1,000 mls @ 125 mls/hr IV ASDIRECTED ON LICENSE OF [facility] Last Admin: 06/02/21 09:41 Dose: 125 mls/hr Documented by: Potassium Chloride 20 meq/Lidocaine HCl 2 ml/ Sodium Chloride 112 mls @ 56 mls/hr IV Q2H ON LICENSE OF [facility] Stop: 06/02/21 14:59 Last Admin: 06/02/21 13:01 Dose: 56 mls/hr Documented by: Sodium Chloride (Normal Saline) 1,000 mls @ 125 mls/hr IV ASDIRECTED BRYANT Last Admin: 06/03/21 01:42 Dose: 125 mls/hr Documented by: Iopamidol (Iopamidol 612 Mg/Ml 100 Ml Bottle) 100 ml IV . DIRECTED ON LICENSE OF [facility] Last Admin: 06/02/21 07:14 Dose: 100 ml Documented by: Ondansetron HCl (Ondansetron 4 Mg/2 Ml Sdv) 4 mg IVPUSH ONETIME ONE Stop: 06/02/21 06:15 Last Admin: 06/02/21 06:27 Dose: 4 mg Documented by: Ondansetron HCl (Ondansetron 4 Mg/2 Ml Sdv) 4 mg IVPUSH ONETIME ONE Stop: 06/02/21 08:23 Last Admin: 06/02/21 08:29 Dose: 4 mg Documented by: Sodium Chloride (Sodium Chloride 0.9% 10 Ml Syringe) 10 ml FLUSH ASDIRECTED PRN PRN Reason: Keep Vein Open Last Admin: 06/02/21 07:14 Dose: 10 ml Documented by: Sodium Chloride (Sodium Chloride 0.9% 10 Ml Syringe) 10 ml FLUSH ONETIME ONE Stop: 06/02/21 06:38 Last Admin: 06/02/21 08:30 Dose: 10 ml Documented by: - Exam Quality Assessment: DVT Prophylaxis General: Alert, Oriented, Cooperative, Moderate Distress Lungs: Clear to Auscultation, Normal Respiratory Effort Cardiovascular: Regular Rate, Regular Rhythm, No Murmurs GI/Abdominal Exam: Soft, No Organomegaly, Tender. No: Distended, Guarding, Rigid, Rebound Extremities: Non-Tender, No Pedal Edema - Patient Data Lab Results Last 24 hrs: Laboratory Results - last 24 hr 06/03/21 06/03/21 Range/Units 04:25 04:25 WBC 9.5 (4.5-11.0) K/uL RBC 4.10 (3.30-5.50) M/uL Hgb 12.7 (12.0-15.0) g/dL Hct 39.3 (36.0-48.0) % MCV 96 (80-98) fL MCH 31 (27-31) pg MCHC 32 (32-36) % Plt Count 266 (150-400) K/uL Neut % (Auto) 70.6 H (36-66) % Lymph % (Auto) 18.4 L (24-44) % [place] % (Auto) 9.4 H (2-6) % Eos % (Auto) 1.5 L (2-4) % Baso % (Auto) 0.1 (0-1) % Sodium 142 (140-148) mmol/L Potassium 3.8 (3.6-5.2) mmol/L Chloride 106 (100-108) mmol/L Carbon Dioxide 30 (21-32) mmol/L Anion Gap 5.9 (5.0-14.0) mmol/L BUN 13 (7-18) mg/dL Creatinine 0.7 (0.6-1.0) mg/dL Est Cr Clr Drug Dosing 56.12 mL/min Estimated GFR (MDRD) > 60 (>60) Glucose 103 (74-106) mg/dL Calcium 8.2 L (8.5-10.1) mg/dL Magnesium 2.0 (1.8-2.4) mg/dL Result Diagrams: 06/03/21 04:25 06/03/21 04:25 Sepsis Event Note - Evaluation Sepsis Screening Result: No Definite Risk - Focused Exam Vital Signs: Vital Signs Temp Pulse Resp BP BP Pulse Ox 06/03/21 10:47 97.4 F 81 16 146/65 H 95 06/03/21 08:18 131/63 06/03/21 07:00 97.0 F 77 16 131/63 95 06/03/21 04:18 96.5 F L 79 16 151/68 H 97 - Problem List Review Problem List Initiated/Reviewed/Updated: Yes - My Orders Last 24 Hours: My Active Orders 06/03/21 09:00 DULoxetine [Cymbalta] 20 mg PO DAILY 06/03/21 12:17 diphenhydrAMINE [Benadryl] 25 mg IVPUSH Q6H PRN 06/03/21 12:22 Benzocaine/Cetylpyrd/Menthol [Cepacol Sore Throat] 1 lozenge MUCMEM Q2H PRN - Plan Plan:: ASSESSMENT AND PLAN SMALL BOWEL OBSTRUCTION-no prior history of obstruction but she does have history of previous abdominal surgeries. CT scan obtained in the emergency d epartment documents a distal small bowel obstruction. Modest improvement since admission with less pain and no nausea or vomiting, she has started to pass gas -N.p.o. -IV fluids for hydration -Pain and nausea medication as needed -NG tube to low intermittent suction -Follow-up abdominal flatplate and upright x-ray in a.m. -Surgical follow-up per Dr. Santillan HYPOKALEMIA-resolved MAINTENANCE ISSUES -DVT prophylaxis; SCUDs, hold on anticoagulation because of possible need for surgery -GI prophylaxis; Protonix 40 mg IV daily -Cortes catheter; not indicated -Nutrition; n.p.o. -Nicotine dependence; not required CODE STATUS-FULL CODE ADMISSION STATUS-patient will be admitted to inpatient status, expect at least a 2 night hospital stay for evaluation and management of problems as outlined above. At the time of this admission I do not reasonably expected evaluation and management of this problem will require more than a 96 hour hospital stay. DISPOSITION-anticipate discharge to home after the hospital stay. PRIMARY CARE PROVIDER-Dr. Madrigal
[2021-06-03] MEDS ORDERED: fentaNYL 100 MCG/2 ML SDV IVPUSH PRN ×2 (14:41→14:43)
--- NOTE | 2021-06-03 14:46 | PCM.SN.2 ---
- Free Text/Narrative Note: Ms. Moses has developed increased neck swelling and some swelling of her tongue through the day. She has had a small bowel movement and her pain is significantly improved. Likely that swelling is secondary to urticaria and probable allergic reaction to either the NG tube or Dilaudid. Now that she has have a bowel movement we will plan to remove the NG tube and discontinue Dilaudid. We will plan to replace Dilaudid with fentanyl as needed. She already is received Benadryl which she felt helped quite a bit, will continue this every 6 hours as needed. She will be started on Pepcid 20 mg IV every 12 hours and Solu-Medrol 40 mg IV every 6 hours.
[2021-06-03] MEDS: methylPREDNISolone Sodium Succinate 40 MG/1 ML SDV IVPUSH SCH ×2 (15:39→20:15)
[2021-06-03] MEDS: Famotidine 20 MG/2 ML SDV IVPUSH SCH (15:40)
[2021-06-04] MEDS: Famotidine 20 MG/2 ML SDV IVPUSH SCH (03:40)
[2021-06-04] MEDS: methylPREDNISolone Sodium Succinate 40 MG/1 ML SDV IVPUSH SCH ×2 (03:40→09:32)
[2021-06-04] MEDS ORDERED: Acetaminophen 160 MG Tab,Disintegrating PO PRN (07:16)
[2021-06-04] MEDS ORDERED: Acetaminophen 500 MG Tab PO PRN (07:16)
[2021-06-04] MEDS: Bisacodyl 10 MG Supp RECTAL SCH ×2 (09:31→20:04)
[2021-06-04] MEDS: Hydrochlorothiazide 25 MG Tab PO SCH (09:32)
[2021-06-04] MEDS: DULoxetine 20 MG Cap PO SCH (09:32)
[2021-06-04] MEDS: Lisinopril 20 MG Tab PO SCH (09:32)
[2021-06-04] MEDS: PARoxetine 20 MG Tab PO SCH (09:32)
--- NOTE | 2021-06-04 09:33 | CR ---
Abdomen 2V AP Flat Upright CLINICAL HISTORY: Postoperative ileus FINDINGS: Small intestinal configuration is nonacute. There is increasing gas and feces in the colon. There is some streaky density in both lung bases likely atelectasis. IMPRESSION: Resolving postoperative ileus
[2021-06-04] MEDS ORDERED: Potassium Chloride 20 MEQ, Lidocaine 1% 2 ML in Sodium Chloride 0.9% 100 ML IV ONE (10:00)
[2021-06-04] MEDS: Benzocaine/Cetylpyridinium/Menthol Lozenge MUCMEM PRN (10:12)
--- NOTE | 2021-06-04 10:22 | PCM.PN ---
- General Info Date of Service: 06/04/21 Subjective Update: Ms. Moses has improved since yesterday, swelling in her neck has essentially resolved. She did have a larger bowel movement this morning and has been started on a liquid diet. She does report mild residual abdominal pain but no nausea or vomiting. Functional Status: Reports: Tolerating Diet, Ambulating, Urinating - Review of Systems General: Reports: No Symptoms Pulmonary: Reports: No Symptoms Cardiovascular: Reports: No Symptoms Gastrointestinal: Reports: Abdominal Pain. Denies: Diarrhea, Difficulty Swallowing, Hematochezia, Melena, Nausea, Vomiting Genitourinary: Reports: No Symptoms - Patient Data Vitals - Most Recent: Last Vital Signs Temp 96.5 F L 06/04/21 03:40 Pulse 81 06/04/21 07:36 Resp 16 06/04/21 07:36 BP 121/61 06/04/21 09:32 Pulse Ox 94 L 06/04/21 07:36 Weight - Most Recent: 149 lb 4.047 oz I&O - Last 24 Hours: Intake & Output 06/03/21 06/04/21 06/04/21 22:59 06:59 14:59 Intake Total 1368 1520 112 Output Total 600 700 300 Balance 768 820 -188 Lab Results Last 24 Hours: Laboratory Results - last 24 hr 06/04/21 06/04/21 Range/Units 04:20 04:20 WBC 8.7 (4.5-11.0) K/uL RBC 3.78 (3.30-5.50) M/uL Hgb 11.6 L (12.0-15.0) g/dL Hct 35.8 L (36.0-48.0) % MCV 95 (80-98) fL MCH 31 (27-31) pg MCHC 32 (32-36) % Plt Count 244 (150-400) K/uL Sodium 138 L (140-148) mmol/L Potassium 3.4 L (3.6-5.2) mmol/L Chloride 101 (100-108) mmol/L Carbon Dioxide 31 (21-32) mmol/L Anion Gap 9.4 (5.0-14.0) mmol/L BUN 6 L D (7-18) mg/dL Creatinine 0.6 (0.6-1.0) mg/dL Est Cr Clr Drug Dosing 66.05 mL/min Estimated GFR (MDRD) > 60 (>60) Glucose 158 H (74-106) mg/dL Calcium 8.3 L (8.5-10.1) mg/dL Phosphorus 3.4 (2.5-4.9) mg/dL Magnesium 1.8 (1.8-2.4) mg/dL Total Bilirubin 0.6 (0.2-1.0) mg/dL AST 15 (15-37) U/L ALT 21 (12-78) U/L Alkaline Phosphatase 56 (46-116) U/L Total Protein 5.5 L (6.4-8.2) g/dL Albumin 2.7 L (3.4-5.0) g/dL Globulin 2.8 (2.3-3.5) g/dL Albumin/Globulin Ratio 1.0 L (1.2-2.2) Med Orders - Current: Current Medications Acetaminophen (Acetaminophen 500 Mg Tab) 1,000 mg PO Q6H PRN PRN Reason: Pain Benzocaine/Menthol (Benzocaine/Cetylpyridinium/Menthol Lozenge) 1 lozenge MUCMEM Q2H PRN PRN Reason: Other Last Admin: 06/04/21 10:12 Dose: 1 michelle Documented by: Bisacodyl (Bisacodyl 10 Mg Supp) 10 mg RECTAL BID [facility] Last Admin: 06/04/21 09:31 Dose: Not Given Documented by: Diphenhydramine HCl (Diphenhydramine 50 Mg/Ml Sdv) 25 mg IVPUSH Q6H PRN PRN Reason: swelling of neck Last Admin: 06/03/21 13:38 Dose: 25 mg Documented by: Duloxetine HCl (Duloxetine 20 Mg Cap) 20 mg PO DAILY [facility] Last Admin: 06/04/21 09:32 Dose: 20 mg Documented by: Famotidine (Famotidine 20 Mg/2 Ml Sdv) 20 mg IVPUSH Q12H [facility] Last Admin: 06/04/21 03:40 Dose: 20 mg Documented by: Fentanyl (Fentanyl 100 Mcg/2 Ml Sdv) 50 mcg IVPUSH Q2H PRN PRN Reason: Pain Last Admin: 06/03/21 20:05 Dose: 50 mcg Documented by: Hydrochlorothiazide (Hydrochlorothiazide 25 Mg Tab) 25 mg PO DAILY [facility] Last Admin: 06/04/21 09:32 Dose: 25 mg Documented by: Potassium Chloride 20 meq/Lidocaine HCl 2 ml/ Sodium Chloride 112 mls @ 56 mls/hr IV ONETIME ONE Stop: 06/04/21 11:59 Last Admin: 06/04/21 10:09 Dose: 56 mls/hr Documented by: Lisinopril (Lisinopril 20 Mg Tab) 20 mg PO DAILY [facility] Last Admin: 06/04/21 09:32 Dose: 20 mg Documented by: Methylprednisolone Sodium Succinate (Methylprednisolone Sodium Succinate 40 Mg/1 Ml Sdv) 40 mg IVPUSH Q6H [facility] Last Admin: 06/04/21 09:32 Dose: 40 mg Documented by: Ondansetron HCl (Ondansetron 4 Mg/2 Ml Sdv) 4 mg IV Q4H PRN PRN Reason: Nausea/Vomiting Last Admin: 06/02/21 13:01 Dose: 4 mg Documented by: Pantoprazole Sodium (Pantoprazole 40 Mg Vial) 40 mg IVPUSH Q24H [facility] Last Admin: 06/03/21 11:50 Dose: 40 mg Documented by: Paroxetine HCl (Paroxetine 20 Mg Tab) 40 mg PO DAILY [facility] Last Admin: 06/04/21 09:32 Dose: 40 mg Documented by: Discontinued Medications Acetaminophen (Acetaminophen 160 Mg Tab,Disintegrating) 640 mg PO Q4H PRN PRN Reason: Pain Fentanyl (Fentanyl 100 Mcg/2 Ml Sdv) 50 mcg IVPUSH ONETIME ONE Stop: 06/02/21 06:15 Last Admin: 06/02/21 06:28 Dose: 50 mcg Documented by: Fentanyl (Fentanyl 100 Mcg/2 Ml Sdv) 50 mcg IVPUSH ONETIME ONE Stop: 06/02/21 08:23 Last Admin: 06/02/21 08:29 Dose: 50 mcg Documented by: Fentanyl (Fentanyl 100 Mcg/2 Ml Sdv) 50 mcg IVPUSH ONETIME ONE Stop: 06/02/21 10:37 Last Admin: 06/02/21 10:56 Dose: 50 mcg Documented by: Fentanyl (Fentanyl 100 Mcg/2 Ml Sdv) 25 mcg IVPUSH Q2H PRN PRN Reason: Pain Hydromorphone HCl (Hydromorphone 0.5 Mg/0.5 Ml Syringe) 0.5 mg IVPUSH Q2H PRN PRN Reason: Pain Last Admin: 06/03/21 13:38 Dose: 0.5 mg Documented by: Lactated Ringer's (Ringers, Lactated) 1,000 mls @ 999 mls/hr IV ASDIRECTED [facility] Last Admin: 06/02/21 06:28 Dose: 999 mls/hr Documented by: Sodium Chloride (Normal Saline) 100 mls @ 3 mls/sec IV ASDIRECTED [facility] Last Admin: 06/02/21 07:14 Dose: 3 mls/sec Documented by: Potassium Chloride 20 meq/ (Premix) 100 mls @ 50 mls/hr IV ONETIME ONE Stop: 06/02/21 09:10 Last Admin: 06/02/21 07:37 Dose: 50 mls/hr Documented by: Potassium Chloride/Sodium Chloride (Normal Saline With 20 Meq Kcl) 1,000 mls @ 125 mls/hr IV ASDIRECTED [facility] Last Admin: 06/02/21 09:41 Dose: 125 mls/hr Documented by: Potassium Chloride 20 meq/Lidocaine HCl 2 ml/ Sodium Chloride 112 mls @ 56 mls/hr IV Q2H [facility] Stop: 06/02/21 14:59 Last Admin: 06/02/21 13:01 Dose: 56 mls/hr Documented by: Sodium Chloride (Normal Saline) 1,000 mls @ 125 mls/hr IV ASDIRECTED [facility] Last Admin: 06/03/21 01:42 Dose: 125 mls/hr Documented by: Dextrose/Lactated Ringer's (Dextrose 5%-Lactated Ringers) 1,000 mls @ 100 mls/hr IV ASDIRECTED [facility] Last Admin: 06/03/21 18:13 Dose: 100 mls/hr Documented by: Iopamidol (Iopamidol 612 Mg/Ml 100 Ml Bottle) 100 ml IV . DIRECTED [facility] Last Admin: 06/02/21 07:14 Dose: 100 ml Documented by: Ondansetron HCl (Ondansetron 4 Mg/2 Ml Sdv) 4 mg IVPUSH ONETIME ONE Stop: 06/02/21 06:15 Last Admin: 06/02/21 06:27 Dose: 4 mg Documented by: Ondansetron HCl (Ondansetron 4 Mg/2 Ml Sdv) 4 mg IVPUSH ONETIME ONE Stop: 06/02/21 08:23 Last Admin: 06/02/21 08:29 Dose: 4 mg Documented by: Sodium Chloride (Sodium Chloride 0.9% 10 Ml Syringe) 10 ml FLUSH ASDIRECTED PRN PRN Reason: Keep Vein Open Last Admin: 06/02/21 07:14 Dose: 10 ml Documented by: Sodium Chloride (Sodium Chloride 0.9% 10 Ml Syringe) 10 ml FLUSH ONETIME ONE Stop: 06/02/21 06:38 Last Admin: 06/02/21 08:30 Dose: 10 ml Documented by: - Exam General: Alert, Oriented, Cooperative, Mild Distress Lungs: Clear to Auscultation, Normal Respiratory Effort Cardiovascular: Regular Rate, Regular Rhythm, No Murmurs GI/Abdominal Exam: Soft, No Organomegaly, Tender. No: Distended, Guarding, Ri gid, Rebound Extremities: Non-Tender, No Pedal Edema - Patient Data Lab Results Last 24 hrs: Laboratory Results - last 24 hr 06/04/21 06/04/21 Range/Units 04:20 04:20 WBC 8.7 (4.5-11.0) K/uL RBC 3.78 (3.30-5.50) M/uL Hgb 11.6 L (12.0-15.0) g/dL Hct 35.8 L (36.0-48.0) % MCV 95 (80-98) fL MCH 31 (27-31) pg MCHC 32 (32-36) % Plt Count 244 (150-400) K/uL Sodium 138 L (140-148) mmol/L Potassium 3.4 L (3.6-5.2) mmol/L Chloride 101 (100-108) mmol/L Carbon Dioxide 31 (21-32) mmol/L Anion Gap 9.4 (5.0-14.0) mmol/L BUN 6 L D (7-18) mg/dL Creatinine 0.6 (0.6-1.0) mg/dL Est Cr Clr Drug Dosing 66.05 mL/min Estimated GFR (MDRD) > 60 (>60) Glucose 158 H (74-106) mg/dL Calcium 8.3 L (8.5-10.1) mg/dL Phosphorus 3.4 (2.5-4.9) mg/dL Magnesium 1.8 (1.8-2.4) mg/dL Total Bilirubin 0.6 (0.2-1.0) mg/dL AST 15 (15-37) U/L ALT 21 (12-78) U/L Alkaline Phosphatase 56 (46-116) U/L Total Protein 5.5 L (6.4-8.2) g/dL Albumin 2.7 L (3.4-5.0) g/dL Globulin 2.8 (2.3-3.5) g/dL Albumin/Globulin Ratio 1.0 L (1.2-2.2) Result Diagrams: 06/04/21 04:20 06/04/21 04:20 Sepsis Event Note - Evaluation Sepsis Screening Result: No Definite Risk - Focused Exam Vital Signs: Vital Signs Temp Pulse Resp BP BP Pulse Ox 06/04/21 09:32 121/61 06/04/21 07:36 81 16 132/61 94 L 06/04/21 03:40 96.5 F L 69 16 121/61 95 06/03/21 23:00 95.6 F L 96 18 128/58 L 92 L - Problem List Review Problem List Initiated/Reviewed/Updated: Yes - My Orders Last 24 Hours: My Active Orders 06/03/21 12:17 diphenhydrAMINE [Benadryl] 25 mg IVPUSH Q6H PRN 06/03/21 12:22 Benzocaine/Cetylpyrd/Menthol [Cepacol Sore Throat] 1 lozenge MUCMEM Q2H PRN 06/03/21 14:41 Nasogastric Orogastric Tube Removal [OM.PC] Routine 06/03/21 14:43 fentaNYL [Sublimaze] 50 mcg IVPUSH Q2H PRN 06/03/21 15:00 Famotidine [Pepcid] 20 mg IVPUSH Q12H methylPREDNISolone Sod Succ [Solu-MEDROL] 40 mg IVPUSH Q6H 06/04/21 10:18 Convert IV to Saline Lock [OM.PC] Routine - Plan Plan:: ASSESSMENT AND PLAN SMALL BOWEL OBSTRUCTION-large bowel movement earlier today, currently tolerating clear liquid diet -Clear liquid diet, advance to full liquid if tolerated -Saline lock IV -Pain and nausea medication as needed -NG tube to low intermittent suction -Follow-up abdominal flatplate and upright x-ray in a.m. -Surgical follow-up per Dr. Santillan URTICARIA-involving the head and neck, secondary to allergic reaction related to the NG tube versus pain medication. Essentially resolved HYPOKALEMIA-mild decrease in potassium noted with this morning's labs -IV potassium replacement MAINTENANCE ISSUES -DVT prophylaxis; SCUDs, hold on anticoagulation because of possible need for surgery -GI prophylaxis; Protonix 40 mg IV daily -Cortes catheter; not indicated -Nutrition; n.p.o. -Nicotine dependence; not required CODE STATUS-FULL CODE ADMISSION STATUS-patient will be admitted to inpatient status, expect at least a 2 night hospital stay for evaluation and management of problems as outlined above. At the time of this admission I do not reasonably expected evaluation and management of this problem will require more than a 96 hour hospital stay. DISPOSITION-anticipate discharge to home after the hospital stay. PRIMARY CARE PROVIDER-Dr. Madrigal
--- NOTE | 2021-06-04 10:38 | PN ---
DATE OF SERVICE: 06/04/2021 SUBJECTIVE: Rosalba had her NG discontinued yesterday after some swelling in her neck. This was taken care of by Carlos A Mahmood MD. She reports she is feeling better in regards to the neck swelling. Continues to have abdominal pain, lower quadrants, right greater than left. Potassium this morning was 3.4. She has had one bowel movement yesterday, which she thought was more the suppository and she had two small bowel movements this morning. She has been up ambulating. Oral intake with sips of clears and she had 300 in; urine output 2000 out. REVIEW OF SYSTEMS: Remainder of review of systems is negative for any pertinent positives and negatives. OBJECTIVE: GENERAL: Rosalba is a pleasant 71-year-old female. VITAL SIGNS: TPR is 69.5, 69, 16, blood pressure 121/61. HEENT: Negative. NECK: Supple. HEART: Regular rate and rhythm. LUNGS: Clear. ABDOMEN: Increased amount of tenderness in her lower abdominal quadrants bilaterally, right is greater than left. Abdomen is soft, moderate distention. States she feels more crampy today. EXTREMITIES: Without peripheral edema. NEUROLOGICAL: Intact. PSYCHIATRIC: Mood and affect appropriate. ASSESSMENT: 1. Partial small bowel obstruction. 2. Hypokalemia, potassium 3.4. PLAN: Clear liquid diet for breakfast. Progress to full liquid at noon for the noon meal if tolerated clear liquids. KCl 40 mEq IV one time. Acetaminophen 1000 mg q.6 hours p.r.n. pain. We will evaluate p.r.n. or in a.m. Isabela Adkins PA-C /[id number]
[2021-06-04] MEDS ORDERED: diphenhydrAMINE 25 MG Cap PO PRN (11:43)
[2021-06-04] MEDS ORDERED: Potassium Chloride 20 MEQ Tab.ER PO ONE (12:30)
[2021-06-05] MEDS: PARoxetine 20 MG Tab PO SCH (08:59)
[2021-06-05] MEDS: Bisacodyl 10 MG Supp RECTAL SCH (08:59)
[2021-06-05] MEDS: Lisinopril 20 MG Tab PO SCH (08:59)
[2021-06-05] MEDS: DULoxetine 20 MG Cap PO SCH (08:59)
[2021-06-05] MEDS: Hydrochlorothiazide 25 MG Tab PO SCH (08:59)
--- NOTE | 2021-06-05 12:47 | DISCH ---
ADMISSION DIAGNOSES: Partial small bowel obstruction, hypokalemia, elevated blood sugar, acquired spondylolisthesis, essential hypertension, generalized anxiety disorder, generalized osteoarthritis. DISCHARGE SUMMARY: 1. Partial small bowel obstruction, resolved. 2. Hypokalemia, resolved. HISTORY: Rosalba Moses is a pleasant 71-year-old female who presented to the emergency room with severe abdominal pain, nausea and vomiting, and was found to have a partial small bowel obstruction. HOSPITAL COURSE: Rosalba was admitted on 06/02/2021. She had an NG placed, was n.p.o., and given IV fluids. On 06/03/2021, a surgical consult was obtained and she was started on Dulcolax suppositories. Labs were rechecked as well as an abdominal flat and upright film. Later in the afternoon of 06/03/2021, she developed increased neck swelling and some swelling of her tongue. The NG was removed and the swelling was thought to be secondary to urticaria and probable allergic reaction to either the NG tube or Dilaudid. She received Benadryl and Pepcid IV every 12 hours and Solu-Medrol 40 mg IV q.6 hours. The swelling did decrease within a few hours, and on 06/03/2021, she was started on clear liquid diet for breakfast and progressed to full liquid diet at noon. On 06/05/2021, Rosalba was able to be discharged to home. PHYSICAL EXAMINATION: GENERAL: Rosalba Moses is a pleasant 71-year-old female. VITAL SIGNS: Height is 5 feet 2 inches, weight is 149 pounds, BMI is 27. TPR 96.2, 65, 16, blood pressure 158/77. HEENT: Negative. NECK: Supple. HEART: Regular rate and rhythm. LUNGS: Clear. ABDOMEN: Soft. Very minimal tenderness is noted in abdomen. EXTREMITIES: Without peripheral edema. NEUROLOGIC: Intact. PSYCHIATRIC: Mood and affect appropriate. REVIEW OF SYSTEMS: Negative for any pertinent positives and negatives for all 12 systems. CONDITION: Rosalba Moses is stable and improving, able to be discharged to home. HOME MEDICATIONS: To resume her home medication as she took prior to hospitalization, which includes Tylenol 1000 mg q.8 hours p.r.n. pain, Cymbalta 20 mg p.o. daily, lisinopril/hydrochlorothiazide 20/25 mg p.o. daily, adenosylmethionine sul tosyl 400 mg tablets and she takes 600 mg p.o. daily. DIET: Full liquid diet for 1 week, then progress to GI soft low fiber diet forever. ACTIVITY: As tolerated. Drink 8 to 10 glasses of water a day. DISCHARGE INSTRUCTIONS: May shower, may drive today. Notify provider if any increased pain, nausea, vomiting. OTHER SPECIAL INSTRUCTIONS: 1. If any questions, call Surgery Department at [facility], or [facility] at [phone], and have either Dr. Santillan or Isabela bethea. 2. Recommend to establish care with the primary care provider. /[phone]
--- NOTE | 2021-06-05 13:10 | CR ---
Abdomen 2V AP Flat Upright CLINICAL HISTORY: Postoperative ileus FINDINGS: NG tube is been removed. Small intestinal configuration is nonacute. There is gas and feces throughout the colon. Patient has a right pleural effusion. Streaky bibasilar airspace disease persist IMPRESSION: Resolution of postoperative ileus Right pleural effusion
== END 2021-06-05 10:30 | disposition home or self-care (01) | DRG 390 ==
LOC: JP.ED 05:41 → JP.MS 10:17
PROVIDERS: ADMIT Hospitalist; ATTEND Hospitalist
DX: K56.609 Unspecified intestinal obstruction, unspecified as to partial versus complete obstruction (principal); K56.600 Partial intestinal obstruction, unspecified as to cause; E87.6 Hypokalemia; L50.0 Allergic urticaria; F41.1 Generalized anxiety disorder; M54.2 Cervicalgia; G89.29 Other chronic pain; M54.9 Dorsalgia, unspecified; M19.90 Unspecified osteoarthritis, unspecified site; F41.9 Anxiety disorder, unspecified; F32.9 Major depressive disorder, single episode, unspecified; Z96.619 Presence of unspecified artificial shoulder joint; T40.2X5A Adverse effect of other opioids, initial encounter; R73.9 Hyperglycemia, unspecified; I10 Essential (primary) hypertension; K94.29 Other complications of gastrostomy; Z90.710 Acquired absence of both cervix and uterus; Z88.8 Allergy status to other drugs, medicaments and biological substances; Z88.5 Allergy status to narcotic agent; Z79.899 Other long term (current) drug therapy; Z85.828 Personal history of other malignant neoplasm of skin; E04.2 Nontoxic multinodular goiter
CPT/HCPCS: 36415; 43752; 71045 ×2; 74018 ×2; 74177; 80053; 81001; 83605; 83690; 83735; 84484; 85025; 96365; 96366; 96375; 96376; 99285; J2405 ×2; J3010 ×2; J3480 ×2; J7120; Q9967; 74019; 74019-26; 80048; 84100; 85027; A9270-GY; C9113; J1170; J1200; J2001; J2920; J3490; J7030; J7121

== ENCOUNTER 2021-11-08 11:29 | Inpatient (IN) | payer MEDICARE, OTHER ==
--- NOTE | 2021-11-08 12:02 | EDM.PDOC ---
ED HPI GENERAL MEDICAL PROBLEM - General Chief Complaint: Abdominal Pain Stated Complaint: LOWER ABD PAIN Time Seen by Provider: 11/08/21 12:01 Source of Information: Reports: Patient History Limitations: Reports: No Limitations - History of Present Illness INITIAL COMMENTS - FREE TEXT/NARRATIVE: pt has a recurrent history of bowel obstructions. On wednesday she started to have some lower abdomanal pain--crampy. The last 2 days when she voids she cramps up in the lower abdoman. She has not felt distended. Onset: Gradual, Other ( started wednesday. ) Duration: Day(s): Location: Reports: Abdomen, Generalized, Other (pt has been chilling. ) Associated Symptoms: Reports: Fever/Chills, Other (pain in lower abdoman. ) Lower Abdomen Pain Score (Numeric/FACES): 5 - Related Data Allergies Allergy/AdvReac Type Severity Reaction Status Date / Time hydromorphone [From Dilaudid] Allergy Other Verified 11/08/21 11:59 latex Allergy Other Verified 11/08/21 11:59 nitrofurantoin Allergy Hives Verified 11/08/21 11:59 [From Macrobid] nitrofurantoin Allergy Hives Verified 11/08/21 11:59 macrocrystalline [From Macrobid] oxycodone Allergy Hives Verified 11/08/21 11:59 Home Meds: Home Meds DULoxetine [Cymbalta] 20 mg PO DAILY 06/02/21 [History] Lisinopril/Hydrochlorothiazide [Lisinopril-Hctz 20-25 mg Tab] 1 tab PO DAILY 06/02/21 [History] PARoxetine HCl [Paxil] 40 mg PO DAILY 06/02/21 [History] S-Adenosylmethionine Sul Tosyl [Fuentes-E] 1,600 mg PO DAILY 06/02/21 [History] Dicyclomine [Bentyl] 10 mg PO QID PRN 11/08/21 [History] Past Medical History Cardiovascular History: Reports: Hypertension Gastrointestinal History: Reports: Irritable Bowel Syndrome CASE INVESTIGATOR History: Reports: Fibroids, Musculoskeletal History: Reports: Arthritis, Back Pain, Chronic, Neck Pain, Chronic Psychiatric History: Reports: Anxiety, Depression Endocrine/Metabolic History: Reports: Multinodular Thyroid Hematologic History: Reports: Blood Transfusion(s) Oncologic (Cancer) History: Reports: Basal Cell Carcinoma - Infectious Disease History Infectious Disease History: Reports: Chicken Pox, Measles, Mumps - Past Surgical History Female Surgical History: Reports: Hysterectomy Neurological Surgical History: Reports: C-Spine, Lumbar Spine, Spinal Fusion Musculoskeletal Surgical History: Reports: Joint Replacement, Shoulder Replacement Other Musculoskeletal Surgeries/Procedures:: shoulder, knees, hips. Social & Family History - Caffeine Use Caffeine Use: Reports: Coffee Other Caffeine Use: 1 cup coffee in morning Caffeine Use Comment: 1 cup per day ED ROS GENERAL - Review of Systems Review Of Systems: See Below Constitutional: Reports: Fever, Chills, Malaise HEENT: Reports: No Symptoms Respiratory: Reports: No Symptoms Cardiovascular: Reports: No Symptoms Endocrine: Reports: No Symptoms GI/Abdominal: Reports: Abdominal Pain, Other ( crampy lower abdomanal pain. ) : Reports: Dysuria, Other (pt is having more difficulty voiding and is having difficulty empting. ) Musculoskeletal: Reports: No Symptoms Skin: Reports: No Symptoms Neurological: Reports: No Symptoms ED EXAM, GI/ABD - Physical Exam Exam: See Below Text/Narrative:: pt arrived with sig lower abdomanal pain. She has had discomfort for about 1 week. She is very uncomfortable at times. Exam Limited By: No Limitations General Appearance: Alert, Anxious, Moderate Distress Ears: Normal TMs Nose: Normal Inspection Throat/Mouth: Normal Inspection Head: Atraumatic Neck: Normal Inspection Respiratory/Chest: No Respiratory Distress Cardiovascular: Regular Rate, Rhythm GI/Abdominal Exam: Tender, Other ( Pt has diffuse lower abdomanal tenderness. ) (Female) Exam: Deferred Rectal (Female) Exam: Deferred Back Exam: Normal Inspection Extremities: Normal Inspection Neurological: Alert, Oriented, Normal Cognition Course - Vital Signs Last Recorded V/S: Last Vital Signs Temp 35.3 C L 11/08/21 11:53 Pulse 83 11/08/21 13:25 Resp 16 11/08/21 13:25 BP 122/54 L 11/08/21 13:25 Pulse Ox 97 11/08/21 13:25 - Orders/Labs/Meds Orders: Active Orders 24 hr Category Date Time Status Iopamidol [Isovue-300 (61%)] Med 11/08/21 13:00 Active 100 ml IV . DIRECTED Levofloxacin/Dextrose 5%-Water [Levaquin in D5W 750 MG/ Med 11/08/21 14:34 Active 150 ML] 750 mg Premix Bag 1 bag IV ONETIME Sodium Chloride 0.9% [Normal Saline] 1,000 ml Med 11/08/21 12:15 Active IV ASDIRECTED Sodium Chloride 0.9% [Normal Saline] 80 ml Med 11/08/21 13:00 Active IV ASDIRECTED fentaNYL [Sublimaze] Med 11/08/21 12:57 Active 50 mcg IVPUSH Q6H PRN metroNIDAZOLE/Normal Saline [Flagyl in NS 500 MG/100 ML Med 11/08/21 14:35 Active ] 500 mg Premix Bag 1 bag IV ONETIME Medication Orders Fentanyl (Fentanyl 100 Mcg/2 Ml Sdv) 50 mcg IVPUSH Q6H PRN PRN Reason: Pain (severe 7-10) Last Admin: 11/08/21 13:25 Dose: 50 mcg Documented by: IZABEL Sodium Chloride (Normal Saline) 1,000 mls @ 999 mls/hr IV ASDIRECTED [facility] Last Admin: 11/08/21 12:17 Dose: 999 mls/hr Documented by: IZABEL Sodium Chloride (Normal Saline) 80 mls @ 3 mls/sec IV ASDIRECTED [facility] Last Admin: 11/08/21 13:11 Dose: 3 mls/sec Documented by: VICK Levofloxacin/Dextrose 750 mg/ (Premix) 150 mls @ 100 mls/hr IV ONETIME ONE Stop: 11/08/21 16:03 Metronidazole 500 mg/ Premix 100 mls @ 100 mls/hr IV ONETIME ONE Stop: 11/08/21 15:34 Iopamidol (Iopamidol 612 Mg/Ml 100 Ml Bottle) 100 ml IV . DIRECTED [facility] Last Admin: 11/08/21 13:12 Dose: 100 ml Documented by: VICK Labs: Laboratory Tests 11/08/21 11/08/21 11/08/21 Range/Units 12:14 12:14 12:14 WBC 12.9 H (4.5-11.0) K/uL RBC 3.97 (3.30-5.50) M/uL Hgb 12.0 (12.0-15.0) g/dL Hct 35.3 L (36.0-48.0) % MCV 89 (80-98) fL MCH 30 (27-31) pg MCHC 34 (32-36) % Plt Count 311 (150-400) K/uL Neut % (Auto) 77.0 H (36-66) % Lymph % (Auto) 12.0 L (24-44) % [place] % (Auto) 10.2 H (2-6) % Eos % (Auto) 0.6 L (2-4) % Baso % (Auto) 0.2 (0-1) % Sodium (140-148) mmol/L Potassium (3.6-5.2) mmol/L Chloride (100-108) mmol/L Carbon Dioxide (21-32) mmol/L Anion Gap (5.0-14.0) mmol/L BUN (7-18) mg/dL Creatinine (0.6-1.0) mg/dL Est Cr Clr Drug Dosing mL/min Estimated GFR (MDRD) (>60) Glucose (74-106) mg/dL Calcium (8.5-10.1) mg/dL Total Bilirubin (0.2-1.0) mg/dL AST (15-37) U/L ALT (12-78) U/L Alkaline Phosphatase (46-116) U/L C-Reactive Protein 15.45 H (0.0-0.3) mg/dL Total Protein (6.4-8.2) g/dL Albumin (3.4-5.0) g/dL Globulin (2.3-3.5) g/dL Albumin/Globulin Ratio (1.2-2.2) Urine Color Yellow (YELLOW) Urine Appearance Cloudy A (CLEAR) Urine pH 8.0 (5.0-8.0) Ur Specific [place] 1.020 (1.008-1.030) Urine Protein 30 H (NEGATIVE) mg/dL Urine Glucose (UA) Negative (NEGATIVE) mg/dL Urine Ketones Negative (NEGATIVE) mg/dL Urine Occult Blood Negative (NEGATIVE) Urine Nitrite Negative (NEGATIVE) Urine Bilirubin Negative (NEGATIVE) Urine Urobilinogen 1.0 (0.2-1.0) EU/dL Ur Leukocyte Esterase Negative (NEGATIVE) Urine RBC Not seen (0-5) Urine WBC 0-5 (0-5) Ur Epithelial Cells Many Amorphous Sediment Not seen Urine Bacteria Few Urine Mucus Few 11/08/21 Range/Units 12:14 WBC (4.5-11.0) K/uL RBC (3.30-5.50) M/uL Hgb (12.0-15.0) g/dL Hct (36.0-48.0) % MCV (80-98) fL MCH (27-31) pg MCHC (32-36) % Plt Count (150-400) K/uL Neut % (Auto) (36-66) % Lymph % (Auto) (24-44) % [place] % (Auto) (2-6) % Eos % (Auto) (2-4) % Baso % (Auto) (0-1) % Sodium 131 L (140-148) mmol/L Potassium 3.3 L (3.6-5.2) mmol/L Chloride 94 L (100-108) mmol/L Carbon Dioxide 27 (21-32) mmol/L Anion Gap 13.3 (5.0-14.0) mmol/L BUN 11 D (7-18) mg/dL Creatinine 0.7 (0.6-1.0) mg/dL Est Cr Clr Drug Dosing 56.61 mL/min Estimated GFR (MDRD) > 60 (>60) Glucose 105 (74-106) mg/dL Calcium 8.6 (8.5-10.1) mg/dL Total Bilirubin 0.7 (0.2-1.0) mg/dL AST 27 D (15-37) U/L ALT 42 D (12-78) U/L Alkaline Phosphatase 130 H D (46-116) U/L C-Reactive Protein (0.0-0.3) mg/dL Total Protein 6.8 (6.4-8.2) g/dL Albumin 3.2 L (3.4-5.0) g/dL Globulin 3.6 H (2.3-3.5) g/dL Albumin/Globulin Ratio 0.9 L (1.2-2.2) Urine Color (YELLOW) Urine Appearance (CLEAR) Urine pH (5.0-8.0) Ur Specific [place] (1.008-1.030) Urine Protein (NEGATIVE) mg/dL Urine Glucose (UA) (NEGATIVE) mg/dL Urine Ketones (NEGATIVE) mg/dL Urine Occult Blood (NEGATIVE) Urine Nitrite (NEGATIVE) Urine Bilirubin (NEGATIVE) Urine Urobilinogen (0.2-1.0) EU/dL Ur Leukocyte Esterase (NEGATIVE) Urine RBC (0-5) Urine WBC (0-5) Ur Epithelial Cells Amorphous Sediment Urine Bacteria Urine Mucus Meds: Medications Generic Name Dose Route Start Last Admin Trade Name Freq PRN Reason Stop Dose Admin Fentanyl 50 mcg 11/08/21 12:57 11/08/21 13:25 Fentanyl 100 Mcg/2 Ml Sdv IVPUSH 50 mcg Q6H PRN Administration Pain (severe 7-10) Sodium Chloride 1,000 mls @ 999 mls/hr 11/08/21 12:15 11/08/21 12:17 Normal Saline IV 999 mls/hr ASDIRECTED BRYANT Administration Sodium Chloride 80 mls @ 3 mls/sec 11/08/21 13:00 11/08/21 13:11 Normal Saline IV 3 mls/sec ASDIRECTED BRYANT Administration Levofloxacin/Dextrose 750 mg/ 150 mls @ 100 mls/hr 11/08/21 14:34 Premix IV 11/08/21 16:03 ONETIME ONE Metronidazole 500 mg/ Premix 100 mls @ 100 mls/hr 11/08/21 14:35 IV 11/08/21 15:34 ONETIME ONE Iopamidol 100 ml 11/08/21 13:00 11/08/21 13:12 Iopamidol 612 Mg/Ml 100 Ml Bottle IV 100 ml . DIRECTED BRYANT Administration - Re-Assessments/Exams Free Text/Narrative Re-Assessment/Exam: 11/08/21 14:55 crp s very high. Her wbc is mildly elevated. Her cat scan shows severe diverticlitis in sigmoid area. She ws started on levoquin and flagyl. Departure - Departure Time of Disposition: 14:56 Disposition: Admitted As Inpatient 64 Condition: Fair Clinical Impression: Diverticulitis - Discharge Information Referrals: Cherry Hoffman MD [Primary Care Provider] - Forms: ED Department Discharge Care Plan Goals: admit to Dr romero Sepsis Event Note (ED) - Evaluation Sepsis Screening Result: No Definite Risk - Focused Exam Vital Signs: Vital Signs Temp Pulse Resp BP Pulse Ox 11/08/21 13:25 83 16 122/54 L 97 11/08/21 11:53 35.3 C L 97 16 136/69 100 11/08/21 11:48 35.3 C L 97 16 136/69 100 - My Orders Last 24 Hours: My Active Orders 11/08/21 12:15 Sodium Chloride 0.9% [Normal Saline] 1,000 ml IV ASDIRECTED 11/08/21 12:57 fentaNYL [Sublimaze] 50 mcg IVPUSH Q6H PRN 11/08/21 13:00 Iopamidol [Isovue-300 (61%)] 100 ml IV . DIRECTED Sodium Chloride 0.9% [Normal Saline] 80 ml IV ASDIRECTED 11/08/21 14:34 Levofloxacin/Dextrose 5%-Water [Levaquin in D5W 750 MG/150 ML] 750 mg Premix Bag 1 bag IV ONETIME 11/08/21 14:35 metroNIDAZOLE/Normal Saline [Flagyl in NS 500 MG/100 ML] 500 mg Premix Bag 1 bag IV ONETIME - Assessment/Plan Last 24 Hours: My Active Orders 11/08/21 12:15 Sodium Chloride 0.9% [Normal Saline] 1,000 ml IV ASDIRECTED 11/08/21 12:57 fentaNYL [Sublimaze] 50 mcg IVPUSH Q6H PRN 11/08/21 13:00 Iopamidol [Isovue-300 (61%)] 100 ml IV . DIRECTED Sodium Chloride 0.9% [Normal Saline] 80 ml IV ASDIRECTED 11/08/21 14:34 Levofloxacin/Dextrose 5%-Water [Levaquin in D5W 750 MG/150 ML] 750 mg Premix Bag 1 bag IV ONETIME 11/08/21 14:35 metroNIDAZOLE/Normal Saline [Flagyl in NS 500 MG/100 ML] 500 mg Premix Bag 1 bag IV ONETIME
[2021-11-08] MEDS ORDERED: Sodium Chloride 0.9% 1,000 ML IV SCH (12:15)
[2021-11-08] MEDS ORDERED: fentaNYL 100 MCG/2 ML SDV IVPUSH PRN (12:57)
[2021-11-08] MEDS ORDERED: Iopamidol 612 MG/ML 100 ML Bottle IV SCH (13:00)
[2021-11-08] MEDS ORDERED: Sodium Chloride 0.9% 80 ML IV SCH (13:00)
--- NOTE | 2021-11-08 14:19 | CRLCT ---
For Patients: As a result of the Century Cures Act, medical imaging exams and procedure reports are released immediately into your electronic medical record. You may view this report before your referring provider. If you have questions, please contact your health care provider. INDICATION: Lower abdominal pain. TECHNIQUE: CT abdomen and pelvis acquired with 100 mL Isovue-300 contrast. COMPARISON: CT abdomen/pelvis dated 06/02/2021. FINDINGS: Lower chest: Bibasilar dependent atelectasis. No focal consolidation. Partially visualized bilateral breast implants with internal capsular rupture, unchanged. Liver: No suspicious focal hepatic lesion. Gallbladder and bile ducts: Cholelithiasis. Pancreas: Unremarkable. Spleen: Punctate calcified granulomas. Adrenal glands: Unremarkable. Kidneys: Kidneys enhance symmetrically, without hydronephrosis. Retroperitoneum: No lymphadenopathy. Bowel and mesentery: Extensive inflammatory changes are present adjacent to the sigmoid colon. There are 2 areas of inflammation which stand out in particular adjacent to prominent colonic diverticula in the mid to distal sigmoid colon, (series 3, image 145), and (series 3, image 128). There is no distant pneumoperitoneum to suggest presence of rupture at this time. Upstream to this, there are mildly dilated loops of colon with air-fluid levels, probably reflective of ileus. Bladder: Unremarkable for degree of distension. Reproductive organs: Posthysterectomy. Pelvic lymph nodes: No lymphadenopathy. Vessels: Atherosclerotic calcifications. Abdominal wall: No acute abdominal wall abnormality. Bones: Extensive multilevel degenerative changes of the spine. No suspicious/aggressive focal osseous lesion. Bilateral hip arthroplasties. Postsurgical changes of the lumbosacral spine. IMPRESSION: 1. Extensive inflammatory changes associated with 2 sigmoid colonic diverticula, consistent with severe diverticulitis. No definite evidence of rupture at this time. 2. Mildly dilated loops of colon with air-fluid levels, probably reflective of ileus. 3. Additional incidental findings as above. Please note that all CT scans at this facility use dose modulation, iterative reconstruction, and/or weight-based dosing when appropriate to reduce radiation dose to as low as reasonably achievable. Dictated by Rk Mas MD @ 11/08/2021 2:18:43 PM (Electronically Signed)
[2021-11-08] MEDS ORDERED: Levofloxacin/Dextrose 5%-Water 750 MG in Premix Bag 1 BAG IV ONE (14:34)
[2021-11-08] MEDS ORDERED: metroNIDAZOLE/Normal Saline 500 MG in Premix Bag 1 BAG IV ONE (14:35)
--- NOTE | 2021-11-08 15:21 | PCM.HP.2 ---
H&P History of Present Illness - General Date of Service: 11/08/21 Admit Problem/Dx: Admission Diagnosis/Problem Admission Diagnosis/Problem Diverticulitis Source of Information: Patient, Family, Provider, RN Notes Reviewed History Limitations: Reports: No Limitations - History of Present Illness Initial Comments - Free Text/Narative: Ms. Moses is a 71-year-old woman who was admitted through the emergency department with abdominal pain secondary to diverticulitis. She has not felt well for approximately 4 days during that period of time has had progressive increase in suprapubic abdominal pain described as an intense ache. Because of worsening symptoms she presented to the emergency department for further evaluation. White blood cell count is found to be elevated and CT scan shows evidence of severe sigmoid diverticulitis. There is no evidence of perforation or abscess formation. Lower Abdomen Pain Score (Numeric/FACES): 5 - Related Data Allergies/Adverse Reactions: Allergies Allergy/AdvReac Type Severity Reaction Status Date / Time hydromorphone [From Dilaudid] Allergy Other Verified 11/08/21 11:59 latex Allergy Other Verified 11/08/21 11:59 nitrofurantoin Allergy Hives Verified 11/08/21 11:59 [From Macrobid] nitrofurantoin Allergy Hives Verified 11/08/21 11:59 macrocrystalline [From Macrobid] oxycodone Allergy Hives Verified 11/08/21 11:59 Home Medications: Home Meds DULoxetine [Cymbalta] 20 mg PO DAILY 06/02/21 [History] Lisinopril/Hydrochlorothiazide [Lisinopril-Hctz 20-25 mg Tab] 1 tab PO DAILY 06/02/21 [History] PARoxetine HCl [Paxil] 40 mg PO DAILY 06/02/21 [History] S-Adenosylmethionine Sul Tosyl [Fuentes-E] 1,600 mg PO DAILY 06/02/21 [History] Dicyclomine [Bentyl] 10 mg PO QID PRN 11/08/21 [History] Past Medical History Cardiovascular History: Reports: Hypertension Gastrointestinal History: Reports: Irritable Bowel Syndrome [employer] ADMINISTRATOR History: Reports: Fibroids, Musculoskeletal History: Reports: Arthritis, Back Pain, Chronic, Neck Pain, Chronic Psychiatric History: Reports: Anxiety, Depression Endocrine/Metabolic History: Reports: Multinodular Thyroid Hematologic History: Reports: Blood Transfusion(s) Oncologic (Cancer) History: Reports: Basal Cell Carcinoma - Infectious Disease History Infectious Disease History: Reports: Chicken Pox, Measles, Mumps - Past Surgical History Female Surgical History: Reports: Hysterectomy Neurological Surgical History: Reports: C-Spine, Lumbar Spine, Spinal Fusion Musculoskeletal Surgical History: Reports: Joint Replacement, Shoulder Replacement Other Musculoskeletal Surgeries/Procedures:: shoulder, knees, hips. Social & Family History - Tobacco Use Tobacco Use Status *Q: Never Tobacco User - Caffeine Use Caffeine Use: Reports: Coffee Other Caffeine Use: 1 cup coffee in morning Caffeine Use Comment: 1 cup per day - Alcohol Use Number of Drinks Per Day: 2 - Recreational Drug Use Recreational Drug Use: No H&P Review of Systems - Review of Systems: Review Of Systems: See Below General: Reports: Fever, Chills, Malaise, Weakness, Fatigue, Decreased Appetite HEENT: Reports: No Symptoms Pulmonary: Reports: No Symptoms Cardiovascular: Reports: No Symptoms Gastrointestinal: Reports: Abdominal Pain, Distension. Denies: Constipation, Difficulty Swallowing, Hematemesis, Hematochezia, Melena, Nausea, Vomiting Genitourinary: Reports: No Symptoms Musculoskeletal: Reports: No Symptoms Skin: Reports: No Symptoms Psychiatric: Reports: No Symptoms Neurological: Reports: No Symptoms Hematologic/Lymphatic: Reports: No Symptoms Immunologic: Reports: No Symptoms Exam - Exam Exam: See Below - Vital Signs Vital Signs: Last Vital Signs Temp 95.5 F L 11/08/21 11:53 Pulse 83 11/08/21 13:25 Resp 16 11/08/21 13:25 BP 122/54 L 11/08/21 13:25 Pulse Ox 97 11/08/21 13:25 Weight: 145 lb - Exam Quality Assessment: DVT Prophylaxis General: Alert, Oriented, Cooperative, Moderate Distress HEENT: Conjunctiva Clear, Hearing Intact, Mucosa Moist & [place], Normal Nasal Septum, Posterior Pharynx Clear, Pupils Equal Neck: Supple, Trachea Midline, +2 Carotid Pulse wo Bruit Lungs: Clear to Auscultation, Normal Respiratory Effort Cardiovascular: Regular Rate, Regular Rhythm, Normal S1, Normal S2. No: Systolic Murmur, Diastolic Murmur GI/Abdominal Exam: Soft, No Organomegaly, Distended, Guarding, Tender. No: Rigid, Rebound Back Exam: Normal Inspection, Full Range of Motion Extremities: Non-Tender, No Pedal Edema Skin: Warm, Dry, Intact Neurological: Cranial Nerves Intact, Strength Equal Bilateral, Normal Speech, Normal Tone, Sensation Intact. No: Focal Deficit Neuro Extensive - Mental Status: Alert, Oriented x3, Normal Mood/Affect, Normal Cognition, Memory Intact - Patient Data Lab Results Last 24 hrs: Laboratory Results - last 24 hr 11/08/21 11/08/21 11/08/21 Range/Units 12:14 12:14 12:14 WBC 12.9 H (4.5-11.0) K/uL RBC 3.97 (3.30-5.50) M/uL Hgb 12.0 (12.0-15.0) g/dL Hct 35.3 L (36.0-48.0) % MCV 89 (80-98) fL MCH 30 (27-31) pg MCHC 34 (32-36) % Plt Count 311 (150-400) K/uL Neut % (Auto) 77.0 H (36-66) % Lymph % (Auto) 12.0 L (24-44) % [place] % (Auto) 10.2 H (2-6) % Eos % (Auto) 0.6 L (2-4) % Baso % (Auto) 0.2 (0-1) % Sodium (140-148) mmol/L Potassium (3.6-5.2) mmol/L Chloride (100-108) mmol/L Carbon Dioxide (21-32) mmol/L Anion Gap (5.0-14.0) mmol/L BUN (7-18) mg/dL Creatinine (0.6-1.0) mg/dL Est Cr Clr Drug Dosing mL/min Estimated GFR (MDRD) (>60) Glucose (74-106) mg/dL Calcium (8.5-10.1) mg/dL Total Bilirubin (0.2-1.0) mg/dL AST (15-37) U/L ALT (12-78) U/L Alkaline Phosphatase (46-116) U/L C-Reactive Protein 15.45 H (0.0-0.3) mg/dL Total Protein (6.4-8.2) g/dL Albumin (3.4-5.0) g/dL Globulin (2.3-3.5) g/dL Albumin/Globulin Ratio (1.2-2.2) Urine Color Yellow (YELLOW) Urine Appearance Cloudy A (CLEAR) Urine pH 8.0 (5.0-8.0) Ur Specific [place] 1.020 (1.008-1.030) Urine Protein 30 H (NEGATIVE) mg/dL Urine Glucose (UA) Negative (NEGATIVE) mg/dL Urine Ketones Negative (NEGATIVE) mg/dL Urine Occult Blood Negative (NEGATIVE) Urine Nitrite Negative (NEGATIVE) Urine Bilirubin Negative (NEGATIVE) Urine Urobilinogen 1.0 (0.2-1.0) EU/dL Ur Leukocyte Esterase Negative (NEGATIVE) Urine RBC Not seen (0-5) Urine WBC 0-5 (0-5) Ur Epithelial Cells Many Amorphous Sediment Not seen Urine Bacteria Few Urine Mucus Few 11/08/21 Range/Units 12:14 WBC (4.5-11.0) K/uL RBC (3.30-5.50) M/uL Hgb (12.0-15.0) g/dL Hct (36.0-48.0) % MCV (80-98) fL MCH (27-31) pg MCHC (32-36) % Plt Count (150-400) K/uL Neut % (Auto) (36-66) % Lymph % (Auto) (24-44) % [place] % (Auto) (2-6) % Eos % (Auto) (2-4) % Baso % (Auto) (0-1) % Sodium 131 L (140-148) mmol/L Potassium 3.3 L (3.6-5.2) mmol/L Chloride 94 L (100-108) mmol/L Carbon Dioxide 27 (21-32) mmol/L Anion Gap 13.3 (5.0-14.0) mmol/L BUN 11 D (7-18) mg/dL Creatinine 0.7 (0.6-1.0) mg/dL Est Cr Clr Drug Dosing 56.61 mL/min Estimated GFR (MDRD) > 60 (>60) Glucose 105 (74-106) mg/dL Calcium 8.6 (8.5-10.1) mg/dL Total Bilirubin 0.7 (0.2-1.0) mg/dL AST 27 D (15-37) U/L ALT 42 D (12-78) U/L Alkaline Phosphatase 130 H D (46-116) U/L C-Reactive Protein (0.0-0.3) mg/dL Total Protein 6.8 (6.4-8.2) g/dL Albumin 3.2 L (3.4-5.0) g/dL Globulin 3.6 H (2.3-3.5) g/dL Albumin/Globulin Ratio 0.9 L (1.2-2.2) Urine Color (YELLOW) Urine Appearance (CLEAR) Urine pH (5.0-8.0) Ur Specific [place] (1.008-1.030) Urine Protein (NEGATIVE) mg/dL Urine Glucose (UA) (NEGATIVE) mg/dL Urine Ketones (NEGATIVE) mg/dL Urine Occult Blood (NEGATIVE) Urine Nitrite (NEGATIVE) Urine Bilirubin (NEGATIVE) Urine Urobilinogen (0.2-1.0) EU/dL Ur Leukocyte Esterase (NEGATIVE) Urine RBC (0-5) Urine WBC (0-5) Ur Epithelial Cells Amorphous Sediment Urine Bacteria Urine Mucus Result Diagrams: 11/08/21 12:14 11/08/21 12:14 Sepsis Event Note - Evaluation Sepsis Screening Result: No Definite Risk - Focused Exam Vital Signs: Vital Signs Temp Pulse Resp BP Pulse Ox 11/08/21 13:25 83 16 122/54 L 97 11/08/21 11:53 95.5 F L 97 16 136/69 100 11/08/21 11:48 95.5 F L 97 16 136/69 100 *Q Meaningful Use (ADM) - VTE Risk Assess *Q Each Risk Factor Represents 1 Point: Obesity ( BMI > 25 kg/m2) Total Score 1 Point Risk Factors: 1 Each Risk Factor Represents 2 Points: Age 60 - 74 Years Total Score 2 Point Risk Factors: 2 Each Risk Factor Represents 3 Points: None Total Score 3 Point Risk Factors: 0 Each Risk Factor Represents 5 Points: None Total Score 5 Point Risk Factors: 0 Venous Thromboembolism Risk Factor Score *Q: 3 Problem List Initiated/Reviewed/Updated: Yes Orders Last 24hrs: Active Orders 24 hr Category Date Time Status Patient Status Manage Transfer [TRANSFER] Routine ADT 11/08/21 15:09 Ordered Iopamidol [Isovue-300 (61%)] Med 11/08/21 13:00 Active 100 ml IV . DIRECTED Levofloxacin/Dextrose 5%-Water [Levaquin in D5W 750 MG/ Med 11/08/21 14:34 Active 150 ML] 750 mg Premix Bag 1 bag IV ONETIME Sodium Chloride 0.9% [Normal Saline] 1,000 ml Med 11/08/21 12:15 Active IV ASDIRECTED Sodium Chloride 0.9% [Normal Saline] 80 ml Med 11/08/21 13:00 Active IV ASDIRECTED fentaNYL [Sublimaze] Med 11/08/21 12:57 Active 50 mcg IVPUSH Q6H PRN metroNIDAZOLE/Normal Saline [Flagyl in NS 500 MG/100 ML Med 11/08/21 14:35 Active ] 500 mg Premix Bag 1 bag IV ONETIME Resuscitation Status Routine Resus Stat 11/08/21 15:11 Ordered Medication Orders Fentanyl (Fentanyl 100 Mcg/2 Ml Sdv) 50 mcg IVPUSH Q6H PRN PRN Reason: Pain (severe 7-10) Last Admin: 11/08/21 13:25 Dose: 50 mcg Documented by: IZABEL Sodium Chloride (Normal Saline) 1,000 mls @ 999 mls/hr IV ASDIRECTED [facility] Last Admin: 11/08/21 12:17 Dose: 999 mls/hr Documented by: IZABEL Sodium Chloride (Normal Saline) 80 mls @ 3 mls/sec IV ASDIRECTED [facility] Last Admin: 11/08/21 13:11 Dose: 3 mls/sec Documented by: VICK Levofloxacin/Dextrose 750 mg/ (Premix) 150 mls @ 100 mls/hr IV ONETIME ONE Stop: 11/08/21 16:03 Metronidazole 500 mg/ Premix 100 mls @ 100 mls/hr IV ONETIME ONE Stop: 11/08/21 15:34 Last Admin: 11/08/21 14:53 Dose: 100 mls/hr Documented by: IZABEL Iopamidol (Iopamidol 612 Mg/Ml 100 Ml Bottle) 100 ml IV . DIRECTED [facility] Last Admin: 11/08/21 13:12 Dose: 100 ml Documented by: VICK Assessment/Plan Comment:: ASSESSMENT AND PLAN SEVERE DIVERTICULITIS-symptoms present for the past 4 days slowly progressive and more intense today. White blood cell count elevated and evidence of severe diverticulitis noted on CT scan. -Pain and nausea medication as needed -N.p.o. -Unasyn 1.5 g IV every 6 hours -IV fluids for hydration HYPERTENSION -Continue outpatient medications MAINTENANCE ISSUES -DVT prophylaxis; Lovenox 40 mg subcu daily -GI prophylaxis; not indicated -Cortes catheter; not indicated -Nutrition; n.p.o. -Nicotine dependence; not required CODE STATUS-FULL CODE ADMISSION STATUS-patient will be admitted to inpatient status, expect at least a 2 night hospital stay for evaluation and management of problems as outlined above. At the time of this admission I do not reasonably expected evaluation and management of this problem will require more than a 96 hour hospital stay. DISPOSITION-anticipate discharge to home after the hospital stay. PRIMARY CARE PROVIDER-Dr. Hoffman - Mortality Measure Prognosis:: Good
[2021-11-08] MEDS ORDERED: HYDROmorphone 0.5 MG/0.5 ML Syringe IVPUSH PRN ×2 (16:13→16:17)
[2021-11-08] MEDS ORDERED: Ondansetron 4 MG/2 ML SDV IV PRN (16:13)
[2021-11-08] MEDS ORDERED: Sodium Chloride 0.9% 10 ML Syringe FLUSH PRN (16:13)
[2021-11-08] MEDS: Enoxaparin 40 MG/0.4 ML Syringe SUBCUT SCH (17:43)
[2021-11-08] MEDS: fentaNYL 100 MCG/2 ML SDV IVPUSH PRN ×3 (17:43→21:55)
[2021-11-08] MEDS: Ampicillin/Sulbactam Na 1.5 GM in Sodium Chloride 0.9% 50 ML IV SCH ×2 (17:47→21:50)
[2021-11-09] MEDS: fentaNYL 100 MCG/2 ML SDV IVPUSH PRN ×6 (01:54→19:47)
[2021-11-09] MEDS: Sodium Chloride 0.9% 1,000 ML IV SCH ×2 (01:54→09:47)
[2021-11-09] MEDS: Ampicillin/Sulbactam Na 1.5 GM in Sodium Chloride 0.9% 50 ML IV SCH ×4 (03:37→22:28)
[2021-11-09] MEDS ORDERED: Potassium Chloride 20 MEQ Tab.ER PO ONE ×2 (08:09→17:00)
[2021-11-09] MEDS: Hydrochlorothiazide 25 MG Tab PO SCH (08:39)
[2021-11-09] MEDS: DULoxetine 20 MG Cap PO SCH (08:39)
[2021-11-09] MEDS: Enoxaparin 40 MG/0.4 ML Syringe SUBCUT SCH (08:40)
[2021-11-09] MEDS: PARoxetine 20 MG Tab PO SCH (08:41)
[2021-11-09] MEDS: Lisinopril 20 MG Tab PO SCH (08:41)
--- NOTE | 2021-11-09 12:51 | PCM.PN ---
- General Info Date of Service: 11/09/21 Subjective Update: Ms. Moses has remained stable since admission yesterday. White blood cell count is normalized and she has had no significant temperature elevation. Pain has improved but not totally resolved, there has been no nausea or vomiting. Functional Status: Reports: Ambulating, Urinating - Review of Systems General: Reports: Weakness, Fatigue. Denies: Fever, Chills Pulmonary: Reports: No Symptoms Cardiovascular: Reports: No Symptoms Gastrointestinal: Reports: Abdominal Pain. Denies: Difficulty Swallowing, Hematochezia, Melena, Nausea, Vomiting Genitourinary: Reports: No Symptoms - Patient Data Vitals - Most Recent: Last Vital Signs Temp 97 F 11/09/21 12:06 Pulse 81 11/09/21 12:06 Resp 12 11/09/21 12:06 BP 115/67 11/09/21 12:06 Pulse Ox 98 11/09/21 12:06 Weight - Most Recent: 145 lb I&O - Last 24 Hours: Intake & Output 11/08/21 11/09/21 11/09/21 22:59 06:59 14:59 Intake Total 100 1487 Balance 100 1487 Lab Results Last 24 Hours: Laboratory Results - last 24 hr 11/09/21 11/09/21 Range/Units 04:25 04:25 WBC 10.4 (4.5-11.0) K/uL RBC 3.68 (3.30-5.50) M/uL Hgb 10.9 L (12.0-15.0) g/dL Hct 33.4 L (36.0-48.0) % MCV 91 (80-98) fL MCH 30 (27-31) pg MCHC 33 (32-36) % Plt Count 283 (150-400) K/uL Neut % (Auto) 76.6 H (36-66) % Lymph % (Auto) 11.5 L (24-44) % [place] % (Auto) 10.5 H (2-6) % Eos % (Auto) 1.2 L (2-4) % Baso % (Auto) 0.2 (0-1) % Sodium 137 L (140-148) mmol/L Potassium 3.3 L (3.6-5.2) mmol/L Chloride 101 (100-108) mmol/L Carbon Dioxide 28 (21-32) mmol/L Anion Gap 11.3 (5.0-14.0) mmol/L BUN 9 (7-18) mg/dL Creatinine 0.7 (0.6-1.0) mg/dL Est Cr Clr Drug Dosing 56.12 mL/min Estimated GFR (MDRD) > 60 (>60) Glucose 85 (74-106) mg/dL Calcium 8.2 L (8.5-10.1) mg/dL Med Orders - Current: Current Medications Acetaminophen (Acetaminophen 325 Mg Tab) 650 mg PO Q4H PRN PRN Reason: Pain (Mild 1-3)/fever Duloxetine HCl (Duloxetine 20 Mg Cap) 20 mg PO DAILY [facility] Last Admin: 11/09/21 08:39 Dose: 20 mg Documented by: Enoxaparin Sodium (Enoxaparin 40 Mg/0.4 Ml Syringe) 40 mg SUBCUT DAILY [facility] Last Admin: 11/09/21 08:40 Dose: 40 mg Documented by: Fentanyl (Fentanyl 100 Mcg/2 Ml Sdv) 50 mcg IVPUSH Q2H PRN PRN Reason: Pain (severe 7-10) Last Admin: 11/09/21 08:36 Dose: 50 mcg Documented by: Hydrochlorothiazide (Hydrochlorothiazide 25 Mg Tab) 25 mg PO DAILY [facility] Last Admin: 11/09/21 08:39 Dose: 25 mg Documented by: Ampicillin Sodium/Sulbactam (Sodium 1.5 gm/ Sodium Chloride) 50 mls @ 100 mls/hr IV Q6HR [facility] Last Admin: 11/09/21 09:46 Dose: 100 mls/hr Documented by: Lisinopril (Lisinopril 20 Mg Tab) 20 mg PO DAILY [facility] Last Admin: 11/09/21 08:41 Dose: 20 mg Documented by: Ondansetron HCl (Ondansetron 4 Mg/2 Ml Sdv) 4 mg IV Q4H PRN PRN Reason: Nausea/Vomiting Paroxetine HCl (Paroxetine 20 Mg Tab) 40 mg PO DAILY [facility] Last Admin: 11/09/21 08:41 Dose: 40 mg Documented by: Potassium Chloride (Potassium Chloride 20 Meq Tab.Er) 40 meq PO ONETIME ONE Stop: 11/09/21 17:01 Sodium Chloride (Sodium Chloride 0.9% 10 Ml Syringe) 10 ml FLUSH ASDIRECTED PRN PRN Reason: Keep Vein Open Discontinued Medications Fentanyl (Fentanyl 100 Mcg/2 Ml Sdv) 50 mcg IVPUSH Q6H PRN PRN Reason: Pain (severe 7-10) Last Admin: 11/08/21 13:25 Dose: 50 mcg Documented by: Hydromorphone HCl (Hydromorphone 0.5 Mg/0.5 Ml Syringe) 0.5 mg IVPUSH Q2H PRN PRN Reason: Pain Hydromorphone HCl (Hydromorphone 0.5 Mg/0.5 Ml Syringe) 0.5 mg IVPUSH Q2H PRN PRN Reason: Pain Sodium Chloride (Normal Saline) 1,000 mls @ 999 mls/hr IV ASDIRECTED [facility] Last Admin: 11/08/21 12:17 Dose: 999 mls/hr Documented by: Sodium Chloride (Normal Saline) 80 mls @ 3 mls/sec IV ASDIRECTED [facility] Last Admin: 11/08/21 13:11 Dose: 3 mls/sec Documented by: Levofloxacin/Dextrose 750 mg/ (Premix) 150 mls @ 100 mls/hr IV ONETIME ONE Stop: 11/08/21 16:03 Last Admin: 11/08/21 15:53 Dose: 100 mls/hr Documented by: Metronidazole 500 mg/ Premix 100 mls @ 100 mls/hr IV ONETIME ONE Stop: 11/08/21 15:34 Last Admin: 11/08/21 14:53 Dose: 100 mls/hr Documented by: Sodium Chloride (Normal Saline) 1,000 mls @ 125 mls/hr IV ASDIRECTED [facility] Last Admin: 11/09/21 09:47 Dose: 125 mls/hr Documented by: Iopamidol (Iopamidol 612 Mg/Ml 100 Ml Bottle) 100 ml IV . DIRECTED [facility] Last Admin: 11/08/21 13:12 Dose: 100 ml Documented by: Potassium Chloride (Potassium Chloride 20 Meq Tab.Er) 40 meq PO ONETIME ONE Stop: 11/09/21 08:10 Last Admin: 11/09/21 08:39 Dose: 40 meq Documented by: - Exam Quality Assessment: DVT Prophylaxis General: Alert, Oriented, Cooperative, Mild Distress Lungs: Clear to Auscultation, Normal Respiratory Effort Cardiovascular: Regular Rate, Regular Rhythm, No Murmurs GI/Abdominal Exam: Soft, Non-Tender, No Organomegaly, No Distention Extremities: Non-Tender, No Pedal Edema - Patient Data Lab Results Last 24 hrs: Laboratory Results - last 24 hr 11/09/21 11/09/21 Range/Units 04:25 04:25 WBC 10.4 (4.5-11.0) K/uL RBC 3.68 (3.30-5.50) M/uL Hgb 10.9 L (12.0-15.0) g/dL Hct 33.4 L (36.0-48.0) % MCV 91 (80-98) fL MCH 30 (27-31) pg MCHC 33 (32-36) % Plt Count 283 (150-400) K/uL Neut % (Auto) 76.6 H (36-66) % Lymph % (Auto) 11.5 L (24-44) % [place] % (Auto) 10.5 H (2-6) % Eos % (Auto) 1.2 L (2-4) % Baso % (Auto) 0.2 (0-1) % Sodium 137 L (140-148) mmol/L Potassium 3.3 L (3.6-5.2) mmol/L Chloride 101 (100-108) mmol/L Carbon Dioxide 28 (21-32) mmol/L Anion Gap 11.3 (5.0-14.0) mmol/L BUN 9 (7-18) mg/dL Creatinine 0.7 (0.6-1.0) mg/dL Est Cr Clr Drug Dosing 56.12 mL/min Estimated GFR (MDRD) > 60 (>60) Glucose 85 (74-106) mg/dL Calcium 8.2 L (8.5-10.1) mg/dL Result Diagrams: 11/09/21 04:25 11/09/21 04:25 Sepsis Event Note - Evaluation Sepsis Screening Result: No Definite Risk - Focused Exam Vital Signs: Vital Signs Temp Pulse Resp BP BP Pulse Ox 11/09/21 12:06 97 F 81 12 115/67 98 11/09/21 08:45 97.8 F 83 12 120/61 94 L 11/09/21 08:41 120/61 11/09/21 03:39 98.1 F 70 16 102/52 L 96 - Problem List Review Problem List Initiated/Reviewed/Updated: Yes - My Orders Last 24 Hours: My Active Orders 11/08/21 Lunch Nothing per Oral Now Diet [DIET] 11/08/21 15:11 Resuscitation Status Routine 11/08/21 16:13 Acetaminophen [TylenoL] 650 mg PO Q4H PRN Ampicillin/Sulbactam Na [Unasyn] 1.5 gm Sodium Chloride 0.9% [Normal Saline] 50 ml IV Q6HR Enoxaparin [Lovenox] 40 mg SUBCUT DAILY Ondansetron [Zofran] 4 mg IV Q4H PRN Sodium Chloride 0.9% [Saline Flush] 10 ml FLUSH ASDIRECTED PRN 11/08/21 16:13 Patient Status [ADT] Routine Ambulate [RC] QID Height and Weight [RC] DAILY Intake and Output [RC] QSHIFT Notify Provider Vital Signs [RC] ASDIRECTED Oxygen Therapy [RC] PRN Peripheral IV Care [RC] Q12H Up to Chair [RC] QID Vital Signs [RC] Q4H Peripheral IV Insertion Adult [OM.PC] Routine Pulse Oximetry Continuous Monitoring [OM.PC] Routine 11/08/21 16:26 fentaNYL [Sublimaze] 50 mcg IVPUSH Q2H PRN 11/09/21 09:00 DULoxetine [Cymbalta] 20 mg PO DAILY PARoxetine [Paxil] 40 mg PO DAILY hydroCHLOROthiazide 25 mg PO DAILY lisinopriL [Prinivil] 20 mg PO DAILY 11/09/21 13:00 Sodium Chloride 0.9% @ 75 MLS/HR(1000ml) Sodium Chloride 0.9% [Normal Saline] 1,000 ml IV ASDIRECTED 11/09/21 17:00 Potassium Chloride [Klor-Con M20] 40 meq PO ONETIME ONE 11/10/21 05:00 BASIC METABOLIC PANEL,BMP [CHEM] Timed - Plan Plan:: ASSESSMENT AND PLAN SEVERE DIVERTICULITIS-symptoms present for the past 4 days slowly progressive and more intense today. Stable since admission, afebrile with normalization of white blood cell count. Abdominal pain has improved but not resolved. -Pain and nausea medication as needed -N.p.o. -Unasyn 1.5 g IV every 6 hours -IV fluids for hydration, decrease IV rate to 75 cc/h HYPERTENSION -Continue outpatient medications MAINTENANCE ISSUES -DVT prophylaxis; Lovenox 40 mg subcu daily -GI prophylaxis; not indicated -Cortes catheter; not indicated -Nutrition; n.p.o. -Nicotine dependence; not required CODE STATUS-FULL CODE ADMISSION STATUS-patient will be admitted to inpatient status, expect at least a 2 night hospital stay for evaluation and management of problems as outlined above. At the time of this admission I do not reasonably expected evaluation and management of this problem will require more than a 96 hour hospital stay. DISPOSITION-anticipate discharge to home after the hospital stay. PRIMARY CARE PROVIDER-Dr. Hoffman
[2021-11-09] MEDS ORDERED: Sodium Chloride 0.9% 1,000 ML IV SCH (13:00)
[2021-11-10] MEDS: fentaNYL 100 MCG/2 ML SDV IVPUSH PRN ×3 (00:34→18:31)
[2021-11-10] MEDS: Ampicillin/Sulbactam Na 1.5 GM in Sodium Chloride 0.9% 50 ML IV SCH ×4 (04:03→21:39)
[2021-11-10] MEDS: Enoxaparin 40 MG/0.4 ML Syringe SUBCUT SCH (08:11)
[2021-11-10] MEDS: PARoxetine 20 MG Tab PO SCH (08:11)
[2021-11-10] MEDS: Hydrochlorothiazide 25 MG Tab PO SCH (08:11)
[2021-11-10] MEDS: DULoxetine 20 MG Cap PO SCH (08:11)
[2021-11-10] MEDS: Lisinopril 20 MG Tab PO SCH (08:12)
--- NOTE | 2021-11-10 09:17 | PCM.PN ---
- General Info Date of Service: 11/10/21 Subjective Update: There were no acute events overnight. Abdominal pain is a little better again today. She has been having mild intermittent diarrhea. She does have some crampy abdominal pain with the diarrhea. Not much of an appetite but is interested in some liquids. She has not had any fevers. No complaints of shortness of breath. Functional Status: Reports: Pain Controlled - Review of Systems General: Denies: Fever Gastrointestinal: Reports: Abdominal Pain - Patient Data Vitals - Most Recent: Last Vital Signs Temp 37.2 C 11/10/21 07:00 Pulse 84 11/10/21 07:00 Resp 18 11/10/21 07:00 BP 120/51 L 11/10/21 08:12 Pulse Ox 95 11/10/21 07:00 Weight - Most Recent: 66.224 kg I&O - Last 24 Hours: Intake & Output 11/09/21 11/10/21 11/10/21 22:59 06:59 14:59 Intake Total 1104 902 Balance 1104 902 Lab Results Last 24 Hours: Laboratory Results - last 24 hr 11/10/21 Range/Units 04:15 Sodium 138 L (140-148) mmol/L Potassium 4.0 (3.6-5.2) mmol/L Chloride 103 (100-108) mmol/L Carbon Dioxide 23 (21-32) mmol/L Anion Gap 16.0 H (5.0-14.0) mmol/L BUN 9 (7-18) mg/dL Creatinine 0.7 (0.6-1.0) mg/dL Est Cr Clr Drug Dosing 56.61 mL/min Estimated GFR (MDRD) > 60 (>60) Glucose 62 L (74-106) mg/dL Calcium 8.5 (8.5-10.1) mg/dL Med Orders - Current: Current Medications Acetaminophen (Acetaminophen 325 Mg Tab) 650 mg PO Q4H PRN PRN Reason: Pain (Mild 1-3)/fever Duloxetine HCl (Duloxetine 20 Mg Cap) 20 mg PO DAILY [facility] Last Admin: 11/10/21 08:11 Dose: 20 mg Documented by: Enoxaparin Sodium (Enoxaparin 40 Mg/0.4 Ml Syringe) 40 mg SUBCUT DAILY [facility] Last Admin: 11/10/21 08:11 Dose: 40 mg Documented by: Fentanyl (Fentanyl 100 Mcg/2 Ml Sdv) 50 mcg IVPUSH Q2H PRN PRN Reason: Pain (severe 7-10) Last Admin: 11/10/21 00:34 Dose: 50 mcg Documented by: Hydrochlorothiazide (Hydrochlorothiazide 25 Mg Tab) 25 mg PO DAILY [facility] Last Admin: 11/10/21 08:11 Dose: 25 mg Documented by: Ampicillin Sodium/Sulbactam (Sodium 1.5 gm/ Sodium Chloride) 50 mls @ 100 mls/hr IV Q6HR [facility] Last Admin: 11/10/21 04:03 Dose: 100 mls/hr Documented by: Lisinopril (Lisinopril 20 Mg Tab) 20 mg PO DAILY [facility] Last Admin: 11/10/21 08:12 Dose: 20 mg Documented by: Ondansetron HCl (Ondansetron 4 Mg/2 Ml Sdv) 4 mg IV Q4H PRN PRN Reason: Nausea/Vomiting Paroxetine HCl (Paroxetine 20 Mg Tab) 40 mg PO DAILY [facility] Last Admin: 11/10/21 08:11 Dose: 40 mg Documented by: Sodium Chloride (Sodium Chloride 0.9% 10 Ml Syringe) 10 ml FLUSH ASDIRECTED PRN PRN Reason: Keep Vein Open Discontinued Medications Fentanyl (Fentanyl 100 Mcg/2 Ml Sdv) 50 mcg IVPUSH Q6H PRN PRN Reason: Pain (severe 7-10) Last Admin: 11/08/21 13:25 Dose: 50 mcg Documented by: Hydromorphone HCl (Hydromorphone 0.5 Mg/0.5 Ml Syringe) 0.5 mg IVPUSH Q2H PRN PRN Reason: Pain Hydromorphone HCl (Hydromorphone 0.5 Mg/0.5 Ml Syringe) 0.5 mg IVPUSH Q2H PRN PRN Reason: Pain Sodium Chloride (Normal Saline) 1,000 mls @ 999 mls/hr IV ASDIRECTED [facility] Last Admin: 11/08/21 12:17 Dose: 999 mls/hr Documented by: Sodium Chloride (Normal Saline) 80 mls @ 3 mls/sec IV ASDIRECTED [facility] Last Admin: 11/08/21 13:11 Dose: 3 mls/sec Documented by: Levofloxacin/Dextrose 750 mg/ (Premix) 150 mls @ 100 mls/hr IV ONETIME ONE Stop: 11/08/21 16:03 Last Admin: 11/08/21 15:53 Dose: 100 mls/hr Documented by: Metronidazole 500 mg/ Premix 100 mls @ 100 mls/hr IV ONETIME ONE Stop: 11/08/21 15:34 Last Admin: 11/08/21 14:53 Dose: 100 mls/hr Documented by: Sodium Chloride (Normal Saline) 1,000 mls @ 125 mls/hr IV ASDIRECTED [facility] Last Admin: 11/09/21 09:47 Dose: 125 mls/hr Documented by: Sodium Chloride (Normal Saline) 1,000 mls @ 75 mls/hr IV ASDIRECTED [facility] Last Admin: 11/09/21 20:06 Dose: 75 mls/hr Documented by: Iopamidol (Iopamidol 612 Mg/Ml 100 Ml Bottle) 100 ml IV . DIRECTED [facility] Last Admin: 11/08/21 13:12 Dose: 100 ml Documented by: Potassium Chloride (Potassium Chloride 20 Meq Tab.Er) 40 meq PO ONETIME ONE Stop: 11/09/21 08:10 Last Admin: 11/09/21 08:39 Dose: 40 meq Documented by: Potassium Chloride (Potassium Chloride 20 Meq Tab.Er) 40 meq PO ONETIME ONE Stop: 11/09/21 17:01 Last Admin: 11/09/21 16:51 Dose: 40 meq Documented by: - Exam Quality Assessment: No: Supplemental Oxygen General: Alert, Oriented, Cooperative, No Acute Distress Lungs: Normal Respiratory Effort GI/Abdominal Exam: Soft, No Distention, Guarding, Tender (moderate diffuse) Extremities: No Pedal Edema Skin: Warm, Dry Psy/Mental Status: Alert, Normal Affect - Patient Data Lab Results Last 24 hrs: Laboratory Results - last 24 hr 11/10/21 Range/Units 04:15 Sodium 138 L (140-148) mmol/L Potassium 4.0 (3.6-5.2) mmol/L Chloride 103 (100-108) mmol/L Carbon Dioxide 23 (21-32) mmol/L Anion Gap 16.0 H (5.0-14.0) mmol/L BUN 9 (7-18) mg/dL Creatinine 0.7 (0.6-1.0) mg/dL Est Cr Clr Drug Dosing 56.61 mL/min Estimated GFR (MDRD) > 60 (>60) Glucose 62 L (74-106) mg/dL Calcium 8.5 (8.5-10.1) mg/dL Result Diagrams: 11/09/21 04:25 11/10/21 04:15 Sepsis Event Note - Evaluation Sepsis Screening Result: No Definite Risk - Focused Exam Vital Signs: Vital Signs Temp Pulse Resp BP BP Pulse Ox 11/10/21 08:12 120/51 L 11/10/21 07:00 37.2 C 84 18 120/51 L 95 11/10/21 04:01 36.5 C 81 16 110/57 L 94 L 11/09/21 22:26 36.8 C 82 16 121/55 L 95 - Problem List Review Problem List Initiated/Reviewed/Updated: Yes - My Orders Last 24 Hours: My Active Orders 11/10/21 09:30 Sodium Chloride 0.9% [Normal Saline] 1,000 ml IV ASDIRECTED 11/10/21 Lunch Clear Liquid Diet [DIET] 11/11/21 05:00 BASIC METABOLIC PANEL,BMP [CHEM] Timed CBC W/O DIFF,HEMOGRAM [HEME] Timed (1) CRP [C-REACTIVE PROTEIN] [CHEM] Timed - Plan Plan:: ASSESSMENT AND PLAN - SEVERE DIVERTICULITIS-abdominal pain is slowly improving. No fevers. Still not much of an appetite. Still fairly uncomfortable on examination. -Pain and nausea medication as needed -Trial of clear liquids -Unasyn 1.5 g IV every 6 hours -IV fluids to TKO HYPERTENSION-stable so far. -Continue outpatient medications MAINTENANCE ISSUES -DVT prophylaxis; enoxaparin -GI prophylaxis; not indicated -Cortes catheter; not indicated -Nutrition; clear liquids ADMISSION STATUS-patient will be admitted to inpatient status, expect at least a 2 night hospital stay for evaluation and management of problems as outlined above. At the time of this admission I do not reasonably expected evaluation and management of this problem will require more than a 96 hour hospital stay. DISPOSITION-anticipate discharge to home after the hospital stay. Randy Werner MD
[2021-11-10] MEDS: Sodium Chloride 0.9% 1,000 ML IV SCH (09:37)
[2021-11-11] MEDS: Ampicillin/Sulbactam Na 1.5 GM in Sodium Chloride 0.9% 50 ML IV SCH ×2 (04:08→09:00)
[2021-11-11] MEDS ORDERED: Potassium Chloride 20 MEQ Tab.ER PO ONE (08:14)
[2021-11-11] MEDS: Hydrochlorothiazide 25 MG Tab PO SCH (08:48)
[2021-11-11] MEDS: DULoxetine 20 MG Cap PO SCH (08:48)
[2021-11-11] MEDS: Lisinopril 20 MG Tab PO SCH (08:49)
[2021-11-11] MEDS: PARoxetine 20 MG Tab PO SCH (08:49)
[2021-11-11] MEDS: Enoxaparin 40 MG/0.4 ML Syringe SUBCUT SCH (08:50)
[2021-11-11] MEDS: metroNIDAZOLE/Normal Saline 500 MG in Premix Bag 1 BAG IV SCH ×2 (10:42→18:36)
[2021-11-11] MEDS: fentaNYL 100 MCG/2 ML SDV IVPUSH PRN (11:49)
[2021-11-11] MEDS: Ciprofloxacin in D5W 400 MG in Premix Bag 1 BAG IV SCH ×4 (11:52→23:13)
--- NOTE | 2021-11-11 12:36 | PCM.PN ---
- General Info Date of Service: 11/11/21 Subjective Update: No acute events overnight. Patient thinks her abdominal pain is slightly better today than yesterday. She did have an increase in her pain after initially tryi ng clear liquids but was able to tolerate them when she sipped very slowly. She does not report any nausea. She does not have much of an appetite. No fevers. Still fairly uncomfortable but overall think she is a little better each day. She has having diarrhea and has some discomfort with the diarrhea. Functional Status: Reports: Pain Controlled - Review of Systems General: Denies: Fever - Patient Data Vitals - Most Recent: Last Vital Signs Temp 36.7 C 11/11/21 08:00 Pulse 82 11/11/21 08:00 Resp 16 11/11/21 08:00 BP 143/82 H 11/11/21 08:49 Pulse Ox 96 11/11/21 08:00 Weight - Most Recent: 65.771 kg I&O - Last 24 Hours: Intake & Output 11/10/21 11/11/21 11/11/21 22:59 06:59 14:59 Intake Total 1660 290 200 Balance 1660 290 200 Lab Results Last 24 Hours: Laboratory Results - last 24 hr 11/11/21 11/11/21 Range/Units 04:20 04:20 WBC 8.1 (4.5-11.0) K/uL RBC 3.80 (3.30-5.50) M/uL Hgb 11.1 L (12.0-15.0) g/dL Hct 33.8 L (36.0-48.0) % MCV 89 (80-98) fL MCH 29 (27-31) pg MCHC 33 (32-36) % Plt Count 314 (150-400) K/uL Sodium 138 L (140-148) mmol/L Potassium 3.5 L (3.6-5.2) mmol/L Chloride 100 (100-108) mmol/L Carbon Dioxide 26 (21-32) mmol/L Anion Gap 15.5 H (5.0-14.0) mmol/L BUN 5 L (7-18) mg/dL Creatinine 0.6 (0.6-1.0) mg/dL Est Cr Clr Drug Dosing 66.05 mL/min Estimated GFR (MDRD) > 60 (>60) Glucose 79 (74-106) mg/dL Calcium 8.2 L (8.5-10.1) mg/dL C-Reactive Protein 14.06 H (0.0-0.3) mg/dL Med Orders - Current: Current Medications Acetaminophen (Acetaminophen 325 Mg Tab) 650 mg PO Q4H PRN PRN Reason: Pain (Mild 1-3)/fever Duloxetine HCl (Duloxetine 20 Mg Cap) 20 mg PO DAILY [facility] Last Admin: 11/11/21 08:48 Dose: 20 mg Documented by: Enoxaparin Sodium (Enoxaparin 40 Mg/0.4 Ml Syringe) 40 mg SUBCUT DAILY [facility] Last Admin: 11/11/21 08:50 Dose: 40 mg Documented by: Fentanyl (Fentanyl 100 Mcg/2 Ml Sdv) 50 mcg IVPUSH Q2H PRN PRN Reason: Pain (severe 7-10) Last Admin: 11/11/21 11:49 Dose: 50 mcg Documented by: Hydrochlorothiazide (Hydrochlorothiazide 25 Mg Tab) 25 mg PO DAILY [facility] Last Admin: 11/11/21 08:48 Dose: 25 mg Documented by: Sodium Chloride (Normal Saline) 1,000 mls @ 25 mls/hr IV ASDIRECTED [facility] Last Admin: 11/10/21 09:37 Dose: 25 mls/hr Documented by: Ciprofloxacin/Dextrose 400 mg/ (Premix) 200 mls @ 200 mls/hr IV Q12H [facility] Last Admin: 11/11/21 11:52 Dose: 200 mls/hr Documented by: Metronidazole 500 mg/ Premix 100 mls @ 100 mls/hr IV Q8H [facility] Last Admin: 11/11/21 10:42 Dose: 100 mls/hr Documented by: Lisinopril (Lisinopril 20 Mg Tab) 20 mg PO DAILY [facility] Last Admin: 11/11/21 08:49 Dose: 20 mg Documented by: Ondansetron HCl (Ondansetron 4 Mg/2 Ml Sdv) 4 mg IV Q4H PRN PRN Reason: Nausea/Vomiting Paroxetine HCl (Paroxetine 20 Mg Tab) 40 mg PO DAILY [facility] Last Admin: 11/11/21 08:49 Dose: 40 mg Documented by: Sodium Chloride (Sodium Chloride 0.9% 10 Ml Syringe) 10 ml FLUSH ASDIRECTED PRN PRN Reason: Keep Vein Open Discontinued Medications Fentanyl (Fentanyl 100 Mcg/2 Ml Sdv) 50 mcg IVPUSH Q6H PRN PRN Reason: Pain (severe 7-10) Last Admin: 11/08/21 13:25 Dose: 50 mcg Documented by: Hydromorphone HCl (Hydromorphone 0.5 Mg/0.5 Ml Syringe) 0.5 mg IVPUSH Q2H PRN PRN Reason: Pain Hydromorphone HCl (Hydromorphone 0.5 Mg/0.5 Ml Syringe) 0.5 mg IVPUSH Q2H PRN PRN Reason: Pain Sodium Chloride (Normal Saline) 1,000 mls @ 999 mls/hr IV ASDIRECTED [facility] Last Admin: 11/08/21 12:17 Dose: 999 mls/hr Documented by: Sodium Chloride (Normal Saline) 80 mls @ 3 mls/sec IV ASDIRECTED [facility] Last Admin: 11/08/21 13:11 Dose: 3 mls/sec Documented by: Levofloxacin/Dextrose 750 mg/ (Premix) 150 mls @ 100 mls/hr IV ONETIME ONE Stop: 11/08/21 16:03 Last Admin: 11/08/21 15:53 Dose: 100 mls/hr Documented by: Metronidazole 500 mg/ Premix 100 mls @ 100 mls/hr IV ONETIME ONE Stop: 11/08/21 15:34 Last Admin: 11/08/21 14:53 Dose: 100 mls/hr Documented by: Ampicillin Sodium/Sulbactam (Sodium 1.5 gm/ Sodium Chloride) 50 mls @ 100 mls/hr IV Q6HR [facility] Last Admin: 11/11/21 09:00 Dose: 100 mls/hr Documented by: Sodium Chloride (Normal Saline) 1,000 mls @ 125 mls/hr IV ASDIRECTED [facility] Last Admin: 11/09/21 09:47 Dose: 125 mls/hr Documented by: Sodium Chloride (Normal Saline) 1,000 mls @ 75 mls/hr IV ASDIRECTED [facility] Last Admin: 11/09/21 20:06 Dose: 75 mls/hr Documented by: Iopamidol (Iopamidol 612 Mg/Ml 100 Ml Bottle) 100 ml IV . DIRECTED [facility] Last Admin: 11/08/21 13:12 Dose: 100 ml Documented by: Potassium Chloride (Potassium Chloride 20 Meq Tab.Er) 40 meq PO ONETIME ONE Stop: 11/09/21 08:10 Last Admin: 11/09/21 08:39 Dose: 40 meq Documented by: Potassium Chloride (Potassium Chloride 20 Meq Tab.Er) 40 meq PO ONETIME ONE Stop: 11/09/21 17:01 Last Admin: 11/09/21 16:51 Dose: 40 meq Documented by: Potassium Chloride (Potassium Chloride 20 Meq Tab.Er) 40 meq PO ONETIME ONE Stop: 11/11/21 08:15 Last Admin: 11/11/21 08:55 Dose: 40 meq Documented by: - Exam Quality Assessment: No: Supplemental Oxygen General: Alert, Oriented, Cooperative, No Acute Distress Lungs: Normal Respiratory Effort GI/Abdominal Exam: Soft, No Distention, Guarding, Tender (Moderate to severe generalized discomfort) Extremities: No Pedal Edema Skin: Warm, Dry Psy/Mental Status: Alert, Normal Affect - Patient Data Lab Results Last 24 hrs: Laboratory Results - last 24 hr 11/11/21 11/11/21 Range/Units 04:20 04:20 WBC 8.1 (4.5-11.0) K/uL RBC 3.80 (3.30-5.50) M/uL Hgb 11.1 L (12.0-15.0) g/dL Hct 33.8 L (36.0-48.0) % MCV 89 (80-98) fL MCH 29 (27-31) pg MCHC 33 (32-36) % Plt Count 314 (150-400) K/uL Sodium 138 L (140-148) mmol/L Potassium 3.5 L (3.6-5.2) mmol/L Chloride 100 (100-108) mmol/L Carbon Dioxide 26 (21-32) mmol/L Anion Gap 15.5 H (5.0-14.0) mmol/L BUN 5 L (7-18) mg/dL Creatinine 0.6 (0.6-1.0) mg/dL Est Cr Clr Drug Dosing 66.05 mL/min Estimated GFR (MDRD) > 60 (>60) Glucose 79 (74-106) mg/dL Calcium 8.2 L (8.5-10.1) mg/dL C-Reactive Protein 14.06 H (0.0-0.3) mg/dL Result Diagrams: 11/11/21 04:20 11/11/21 04:20 Sepsis Event Note - Evaluation Sepsis Screening Result: No Definite Risk - Focused Exam Vital Signs: Vital Signs Temp Pulse Resp BP BP Pulse Ox 11/11/21 08:49 143/82 H 11/11/21 08:00 36.7 C 82 16 143/80 H 96 11/11/21 04:11 36.7 C 70 18 122/68 95 - Problem List Review Problem List Initiated/Reviewed/Updated: Yes - My Orders Last 24 Hours: My Active Orders 11/10/21 Lunch Clear Liquid Diet [DIET] 11/11/21 10:00 metroNIDAZOLE/Normal Saline [Flagyl in NS 500 MG/100 ML] 500 mg Premix Bag 1 bag IV Q8H 11/11/21 11:30 Ciprofloxacin in D5W [Cipro in D5W 400 MG/200 ML] 400 mg Premix Bag 1 bag IV Q12H 11/12/21 05:00 BASIC METABOLIC PANEL,BMP [CHEM] Timed CRP [C-REACTIVE PROTEIN] [CHEM] Timed - Plan Plan:: ASSESSMENT AND PLAN - SEVERE DIVERTICULITIS-subjectively she reports improvement but she is still quite uncomfortable on examination. CRP is only marginally better than at admission. White count did normalize and she has not been having any fevers. I think she should be doing better than she has at this point. -Change antibiotics to ciprofloxacin and metronidazole -Pain and nausea medication as needed -Continue clear liquids -IV fluids to TKO -Repeat CT scan of the abdomen if worsening or not getting better HYPERTENSION-stable so far. -Continue outpatient medications MAINTENANCE ISSUES -DVT prophylaxis; enoxaparin -GI prophylaxis; not indicated -Cortes catheter; not indicated -Nutrition; clear liquids DISPOSITION-anticipate discharge to home after the hospital stay. Randy Werner MD
[2021-11-11] MEDS: Acetaminophen 325 MG Tab PO PRN ×3 (13:19→21:40)
[2021-11-11] MEDS ORDERED: diphenhydrAMINE 50 MG/ML SDV IVPUSH PRN (18:06)
[2021-11-12] MEDS: metroNIDAZOLE/Normal Saline 500 MG in Premix Bag 1 BAG IV SCH ×2 (01:43→09:12)
[2021-11-12] MEDS ORDERED: Potassium Chloride 20 MEQ Tab.ER PO SCH (09:00)
[2021-11-12] MEDS: Hydrochlorothiazide 25 MG Tab PO SCH (09:13)
[2021-11-12] MEDS: Lisinopril 20 MG Tab PO SCH (09:13)
[2021-11-12] MEDS: PARoxetine 20 MG Tab PO SCH (09:13)
[2021-11-12] MEDS: Enoxaparin 40 MG/0.4 ML Syringe SUBCUT SCH (09:13)
[2021-11-12] MEDS: DULoxetine 20 MG Cap PO SCH (09:14)
[2021-11-12] MEDS: Sodium Chloride 0.9% 1,000 ML IV SCH (09:20)
[2021-11-12] MEDS ORDERED: Ciprofloxacin 500 MG Tab PO SCH (11:00)
[2021-11-12] MEDS ORDERED: metroNIDAZOLE 250 MG Tab PO SCH (14:00)
--- NOTE | 2021-11-12 14:56 | PCM.DCSUM1 ---
Discharge Summary - Hospital Course Brief History: 71-year-old female with history of diffuse arthritis who presented with progressive abdominal pain. She was admitted for management of severe sigmoid diverticulitis without obvious perforation or abscess. Diagnosis: Stroke: No - Discharge Data Discharge Date: 11/12/21 Discharge Disposition: Home, Self-Care 01 Condition: Fair - Referral to Home Health Primary Care Physician: Cherry Hoffman MD - Discharge Diagnosis/Problem(s) (1) Diverticulitis SNOMED Code(s): 108298591 ICD Code: K57.92 - DVTRCLI OF INTEST, PART UNSP, W/O PERF OR ABSCESS W/O BLEED Status: Acute Current Visit: Yes (2) Hypokalemia SNOMED Code(s): 64748094 ICD Code: E87.6 - HYPOKALEMIA Status: Acute Current Visit: No - Patient Summary/Data Hospital Course: Rosalba presented to the emergency room with several days of progressive lower abdominal pain. Work-up in the emergency room revealed mild leukocytosis and mild hypokalemia. The CT scan of the abdomen and pelvis showed severe sigmoid diverticulitis but no evidence for perforation or abscess. Given the severity of her pain and severity of the infection she was not thought to be safe for outpatient management. She was started on IV Unasyn and was admitted to the hospital for further management. Over the next couple of days we did see a normalization of her white blood cell count. She did not have any fevers. Subjectively she reported that her abdominal pain was feeling better though she did remain fairly uncomfortable. She was n.p.o. for the first 3 days or so and really did not have much of an appetite. With some improvement in her pain we did trial her on clear liquids which she did not tolerate very well. I rechecked her C-reactive protein which had been 15 in the emergency room and it was still elevated at 14. Given the persistence and also the severity of her abdominal pain as well as the CRP that was not trending down I elected to change antibiotics to ciprofloxacin and metronidazole. Over the last 24 hours we have seen a more impressive improvement in her abdominal pain. Her CRP has decreased from 14 down to 9 in just 24 hours time. She tolerated clear liquids fairly well this morning and did okay with full liquids this afternoon. Her pain has been controlled just with [id number] medications. She feels well enough to go home at this time and would like to try it at home. Plan is to continue the ciprofloxacin and metronidazole to complete a total of 10 days of antibiotics. She does have early follow-up planned. She will continue a liquid diet until her abdominal pain improves further before introducing soft foods. We did discuss the potential complication of severe diverticulitis such as rupture or abscess. Encouraged her to be vigilant for fevers and worsening abdominal pain after hospital discharge. She feels comfortable going home at this point and I think she is stable and safe for outpatient management. - Patient Instructions Diet: Full Liquid Diet Activity: As Tolerated Showering/Bathing: May Shower Notify Provider of: Fever, Increased Pain Other/Special Instructions: 1. You were in the hospital for management of severe diverticulitis without any obvious complications noted on the CT scan. Your condition seems to be improving with antibiotic therapy. I do recommend additional antibiotic therapy after hospital discharge. Please take ciprofloxacin 500 mg twice daily starting tonight. Also, please take metronidazole 500 mg 3 times daily with your first dose due tonight. I recommend a full liquid diet for the next several days until your abdominal pain improves further and then you may introduce soft foods and then resume your regular diet once the pain has resolved. You may increase your activity as tolerated. Please seek medical attention if you have fever greater than 101 or if you have worsening abdominal pain. I do also recommend that you take a probiotic while you are taking antibiotics. - Discharge Plan *PRESCRIPTION DRUG MONITORING PROGRAM REVIEWED*: Not Applicable *COPY OF PRESCRIPTION DRUG MONITORING REPORT IN PATIENT DEDRA: Not Applicable Prescriptions/Med Rec: Ciprofloxacin [Ciprofloxacin HCl] 500 mg PO BID #19 tablet metroNIDAZOLE [Metronidazole] 500 mg PO TID #28 tablet Home Medications: Home Meds DULoxetine [Cymbalta] 20 mg PO DAILY 06/02/21 [History] Lisinopril/Hydrochlorothiazide [Lisinopril-Hctz 20-25 mg Tab] 1 tab PO DAILY 06/02/21 [History] PARoxetine HCl [Paxil] 40 mg PO DAILY 06/02/21 [History] S-Adenosylmethionine Sul Tosyl [Fuentes-E] 1,600 mg PO DAILY 06/02/21 [History] Dicyclomine [Bentyl] 10 mg PO QID PRN 11/08/21 [History] Ciprofloxacin [Ciprofloxacin HCl] 500 mg PO BID #19 tablet 11/12/21 [Rx] metroNIDAZOLE [Metronidazole] 500 mg PO TID #28 tablet 11/12/21 [Rx] Oxygen Therapy Mode: Room Air Patient Handouts: Fall Prevention in the Home, Adult, [id number], Diverticulitis, [id number]-[id number], Ciprofloxacin tablets, Metronidazole tablets or capsules Referrals: Cherry Hoffman MD [Primary Care Provider] - 11/21/21 2:20 pm (Please arrive 15 minutes early to register for your appointment.) - Discharge Summary/Plan Comment DC Time >30 min.: No Total # of Minutes for Discharge Time: 25 - Patient Data Vitals - Most Recent: Last Vital Signs Temp 36.4 C 11/12/21 11:09 Pulse 79 11/12/21 11:09 Resp 18 11/12/21 11:09 BP 156/82 H 11/12/21 11:09 Pulse Ox 96 11/12/21 11:09 Weight - Most Recent: 65.771 kg I&O - Last 24 hours: Intake & Output 11/11/21 11/12/21 11/12/21 22:59 06:59 14:59 Intake Total 608 302 3771 Balance 284 401 9437 Lab Results - Last 24 hrs: Laboratory Results - last 24 hr 11/12/21 Range/Units 04:26 Sodium 140 (140-148) mmol/L Potassium 3.3 L (3.6-5.2) mmol/L Chloride 103 (100-108) mmol/L Carbon Dioxide 27 (21-32) mmol/L Anion Gap 13.3 (5.0-14.0) mmol/L BUN 4 L (7-18) mg/dL Creatinine 0.6 (0.6-1.0) mg/dL Est Cr Clr Drug Dosing 66.05 mL/min Estimated GFR (MDRD) > 60 (>60) Glucose 94 (74-106) mg/dL Calcium 8.6 (8.5-10.1) mg/dL C-Reactive Protein 9.33 H (0.0-0.3) mg/dL Med Orders - Current: Current Medications Acetaminophen (Acetaminophen 325 Mg Tab) 650 mg PO Q4H PRN PRN Reason: Pain (Mild 1-3)/fever Last Admin: 11/11/21 21:40 Dose: 650 mg Documented by: Ciprofloxacin (Ciprofloxacin 500 Mg Tab) 500 mg PO BID [facility] Last Admin: 11/12/21 11:08 Dose: 500 mg Documented by: Diphenhydramine HCl (Diphenhydramine 50 Mg/Ml Sdv) 25 mg IVPUSH Q4H PRN PRN Reason: allergic reaction Last Admin: 11/11/21 18:31 Dose: 25 mg Documented by: Duloxetine HCl (Duloxetine 20 Mg Cap) 20 mg PO DAILY [facility] Last Admin: 11/12/21 09:14 Dose: 20 mg Documented by: Enoxaparin Sodium (Enoxaparin 40 Mg/0.4 Ml Syringe) 40 mg SUBCUT DAILY [facility] Last Admin: 11/12/21 09:13 Dose: 40 mg Documented by: Fentanyl (Fentanyl 100 Mcg/2 Ml Sdv) 50 mcg IVPUSH Q2H PRN PRN Reason: Pain (severe 7-10) Last Admin: 11/11/21 11:49 Dose: 50 mcg Documented by: Hydrochlorothiazide (Hydrochlorothiazide 25 Mg Tab) 25 mg PO DAILY [facility] Last Admin: 11/12/21 09:13 Dose: 25 mg Documented by: Lisinopril (Lisinopril 20 Mg Tab) 20 mg PO DAILY [facility] Last Admin: 11/12/21 09:13 Dose: 20 mg Documented by: Metronidazole (Metronidazole 250 Mg Tab) 500 mg PO TID [facility] Last Admin: 11/12/21 13:57 Dose: 500 mg Documented by: Ondansetron HCl (Ondansetron 4 Mg/2 Ml Sdv) 4 mg IV Q4H PRN PRN Reason: Nausea/Vomiting Paroxetine HCl (Paroxetine 20 Mg Tab) 40 mg PO DAILY [facility] Last Admin: 11/12/21 09:13 Dose: 40 mg Documented by: Potassium Chloride (Potassium Chloride 20 Meq Tab.Er) 40 meq PO BID [facility] Stop: 11/12/21 21:01 Last Admin: 11/12/21 09:20 Dose: 40 meq Documented by: Sodium Chloride (Sodium Chloride 0.9% 10 Ml Syringe) 10 ml FLUSH ASDIRECTED PRN PRN Reason: Keep Vein Open Discontinued Medications Fentanyl (Fentanyl 100 Mcg/2 Ml Sdv) 50 mcg IVPUSH Q6H PRN PRN Reason: Pain (severe 7-10) Last Admin: 11/08/21 13:25 Dose: 50 mcg Documented by: Hydromorphone HCl (Hydromorphone 0.5 Mg/0.5 Ml Syringe) 0.5 mg IVPUSH Q2H PRN PRN Reason: Pain Hydromorphone HCl (Hydromorphone 0.5 Mg/0.5 Ml Syringe) 0.5 mg IVPUSH Q2H PRN PRN Reason: Pain Sodium Chloride (Normal Saline) 1,000 mls @ [facility] Admin: 11/08/21 12:17 Dose: 999 mls/hr Documented by: Sodium Chloride (Normal Saline) 80 mls @ 3 mls/sec [facility] Last Admin: 11/08/21 13:11 Dose: 3 mls/sec Documented by: Levofloxacin/Dextrose 750 mg/ (Premix) 150 mls @ 100 mls/hr IV ONETIME ONE Stop: 11/08/21 16:03 Last Admin: 11/08/21 15:53 Dose: 100 mls/hr Documented by: Metronidazole 500 mg/ Premix 100 mls @ 100 mls/hr IV ONETIME ONE Stop: 11/08/21 15:34 Last Admin: 11/08/21 14:53 Dose: 100 mls/hr Documented by: Ampicillin Sodium/Sulbactam (Sodium 1.5 gm/ Sodium Chloride) 50 mls @ 100 mls/hr IV Q6HR [facility] Last Admin: 11/11/21 09:00 Dose: 100 mls/hr Documented by: Sodium Chloride (Normal Saline) 1,000 mls @ 125 mls[facility]hr [facility] Last Admin: 11/09/21 09:47 Dose: 125 mls/hr Documented by: Sodium Chloride (Normal Saline) 1,000 mls @ 75 mls[facility]hr [facility] Last Admin: 11/09/21 20:06 Dose: 75 mls/hr Documented by: Sodium Chloride (Normal Saline) 1,000 mls @ 25 [facility]ls[facility] Last Admin: 11/12/21 09:20 Dose: 25 mls/hr Documented by: Ciprofloxacin/Dextrose 400 mg/ (Premix) 200 mls @ 200 mls/hr IV Q12H [facility] Last Admin: 11/11/21 23:13 Dose: 200 mls/hr Documented by: Metronidazole 500 mg/ Premix 100 mls @ 100 mls/hr IV Q8H [facility] Last Admin: 11/12/21 09:12 Dose: 100 mls/hr Documented by: Iopamidol (Iopamidol 612 Mg/Ml 100 Ml Bottle) 100 ml IV . DIRECTED [facility] Last Admin: 11/08/21 13:12 Dose: 100 ml Documented by: Potassium Chloride (Potassium Chloride 20 Meq Tab.Er) 40 meq PO ONETIME ONE Stop: 11/09/21 08:10 Last Admin: 11/09/21 08:39 Dose: 40 meq Documented by: Potassium Chloride (Potassium Chloride 20 Meq Tab.Er) 40 meq PO ONETIME ONE Stop: 11/09/21 17:01 Last Admin: 11/09/21 16:51 Dose: 40 meq Documented by: Potassium Chloride (Potassium Chloride 20 Meq Tab.Er) 40 meq PO ONETIME ONE Stop: 11/11/21 08:15 Last Admin: 11/11/21 08:55 Dose: 40 meq Documented by:
== END 2021-11-12 15:40 | disposition home or self-care (01) | DRG 392 ==
LOC: JP.ED 11:29 → JP.ICU 15:09 → JP.MS 11-09 19:47
PROVIDERS: ADMIT Hospitalist; ATTEND Internal Medicine
DX: K57.92 Diverticulitis of intestine, part unspecified, without perforation or abscess without bleeding (principal); K57.32 Diverticulitis of large intestine without perforation or abscess without bleeding; E87.6 Hypokalemia; I10 Essential (primary) hypertension; M54.9 Dorsalgia, unspecified; G89.29 Other chronic pain; M54.2 Cervicalgia; Z96.619 Presence of unspecified artificial shoulder joint; F41.9 Anxiety disorder, unspecified; F32.A Depression, unspecified; K58.9 Irritable bowel syndrome, unspecified; M19.90 Unspecified osteoarthritis, unspecified site; E04.2 Nontoxic multinodular goiter; Z88.5 Allergy status to narcotic agent; Z91.040 Latex allergy status; Z88.8 Allergy status to other drugs, medicaments and biological substances; Z79.899 Other long term (current) drug therapy; Z90.710 Acquired absence of both cervix and uterus; Z85.828 Personal history of other malignant neoplasm of skin
CPT/HCPCS: 36415; 74177; 80053; 81001; 85025; 86140; 96374; 96375; 99285; J3010; J3490; J7030; Q9967; 80048; 85027; A9270-GY; J0295; J0744; J1200; J1650; J1956

== ENCOUNTER 2022-01-15 06:49 | Day surgery (SDC) | payer MEDICARE, OTHER ==
[2022-01-15] MEDS ORDERED: fentaNYL 100 MCG/2 ML SDV ONE (07:06)
[2022-01-15] MEDS ORDERED: Propofol 200 MG/20 ML SDV ONE ×2 (07:06→09:45)
[2022-01-15] MEDS ORDERED: Midazolam 1 MG/ML 2 ML SDV ONE (07:06)
[2022-01-15] MEDS ORDERED: Sodium Chloride 0.9% 1,000 ML IV SCH (08:00)
== END 2022-01-15 10:12 | disposition home or self-care (01) ==
LOC: JP.SDS 06:49
PROVIDERS: ATTEND Surgery
DX: Z12.11 Encounter for screening for malignant neoplasm of colon (principal); K57.30 Diverticulosis of large intestine without perforation or abscess without bleeding; I10 Essential (primary) hypertension
CPT/HCPCS: J2250; J2704; J3010; J7030

== ENCOUNTER 2025-06-26 21:46 | Emergency (ER) | payer MEDICARE, OTHER ==
[2025-06-26] MEDS ORDERED: Naloxone 0.4 MG/ML SDV IVPUSH PRN (22:46)
[2025-06-26 23:00] LABS: BASOPHILS ABSOLUTE AUTO 0.04 K/uL (0.00-0.10); BASOPHILS PERCENT AUTO 0.4 % (0.1-1.3); EOSINOPHILS ABSOLUTE AUTO 0.16 K/uL (0.00-0.40); EOSINOPHILS PERCENT AUTO 1.5 % (0.0-5.4); IMMATURE GRAN ABSOLUTE AUTO 0.16 K/uL (0.00-0.23); IMMATURE GRAN PERCENT AUTO 1.5 % (0.0-0.7); LYMPHOCYTES ABSOLUTE AUTO 1.10 K/uL (0.8-3.3); LYMPHOCYTES PERCENT AUTO 10.5 % (11.4-47.7); MONOCYTES ABSOLUTE AUTO 0.75 K/uL (0.20-0.90); MONOCYTES PERCENT AUTO 7.2 % (3.3-12.6); NEUTROPHILS ABSOLUTE AUTO 8.25 K/uL (1.0-7.6); NEUTROPHILS PERCENT AUTO 78.9 % (40.0-78.1); PLATELET COUNT,PLT 273 K/uL (130-375); RED BLOOD CELL COUNT 4.38 M/uL (3.77-5.24); WHITE BLOOD CELL COUNT,WBC 10.5 K/uL (3.2-11.0)
[2025-06-26] MEDS: fentaNYL 50 MCG/ML SDV IVPUSH ONE (23:14)
[2025-06-26 23:30] LABS: BLOOD UREA NITROGEN,BUN 13.0 mg/dL (7-18); CARBON DIOXIDE,CO2 29.0 mmol/L (21-32); CHLORIDE,CL 95.0 mmol/L (100-108); CREATININE 0.5 mg/dL (0.6-1.0); EST CRCL DRUG DOSING (CG) 74.52 mL/min; ESTIMATED GFR 97.0 mL/min (>60); GLUCOSE RANDOM 134.0 mg/dL (74-106); POTASSIUM,K 3.1 mmol/L (3.6-5.2); SODIUM,NA 131.0 mmol/L (140-148); TROPONIN I HIGH SENSITIVITY 8.4 pg/mL (<=60.3)
[2025-06-27] MEDS: Potassium Chloride 20 MEQ Tab.ER PO ONE (00:04)
[2025-06-27] MEDS: Sodium Chloride 0.9% 10 ML Syringe FLUSH PRN (00:07)
== END 2025-06-27 00:48 | disposition home or self-care (01) ==
LOC: JP.ED 21:46
DX: M25.511 Pain in right shoulder (principal); I10 Essential (primary) hypertension; Z91.040 Latex allergy status; Z88.5 Allergy status to narcotic agent; Z88.8 Allergy status to other drugs, medicaments and biological substances; Z88.2 Allergy status to sulfonamides; Z79.899 Other long term (current) drug therapy
CPT/HCPCS: 36415; 73030; 80048; 84484; 85025; 86140; 93005; 96374; 96375; 99284; A9270; J1790; J3010; 93010